=== PATIENT | female | born 1935 | race Caucasian/White ===

== ENCOUNTER → 2016-08-05 | Outpatient (CLI) | payer MEDICARE ==
[2015-05-04 18:55] VITALS: BP 178/62
[~2016-08-05] MED LIST: ACET500T68 PO; AMIT100T PO; ATOR20TA58 PO; CETI10TA22 PO; CLOP75TA27 PO; ESCI10TA PO; FENO48TA2 PO; FURO80TA72 PO; INSU100V13 SQ; LISI40TA PO; OMEP20CA5 PO; VIT1TABL2 PO; VIT1TABL71 PO
--- NOTE | 2016-08-05 17:41 | RAD ---
Left leg venous Doppler study: Clinical indications: Left leg swelling and pain. Findings: Duplex sonography (including edgar scale evaluation and color flow and waveform spectral analysis) of the proximal aspect of the greater saphenous vein and the proximal aspect of the profunda femoral vein and the entire length of the common femoral and superficial femoral and popliteal veins and the tibioperoneal trunk and the proximal aspect of the posterior tibial and peroneal veins of the left leg was performed. Normal compressibility, augmentation of color Doppler flow after calf compression, and respiratory variation of Doppler flow is seen. Thus, there are no sonographic findings of deep venous thrombosis within these veins. Impression: There are no sonographic findings of deep venous thrombosis within the veins discussed above of the left lower extremity. Right leg venous Doppler study: Clinical indications: Right leg swelling and pain. Findings: Duplex sonography (including edgar scale evaluation and color flow and waveform spectral analysis) of the proximal aspect of the greater saphenous vein and proximal aspect of the profunda femoral vein and the entire length of the common femoral and superficial femoral and popliteal veins and the tibioperoneal trunk and the proximal aspect of the posterior tibial and peroneal veins of the right leg was performed. Normal compressibility, augmentation of color Doppler flow after calf compression, and respiratory variation of Doppler flow is seen. Thus, there are no sonographic findings of deep venous thrombosis within these veins. Impression: There are no sonographic findings of deep venous thrombosis within the veins discussed above of the right lower extremity.
== END | disposition home or self-care (01) ==
LOC: US 15:25
PROVIDERS: ATTEND Internal Medicine
DX: M79.89 Other specified soft tissue disorders (principal); M79.605 Pain in left leg; M79.604 Pain in right leg
CPT/HCPCS: 93970

== ENCOUNTER 2017-02-03 07:16 | Emergency (ER) | payer MEDICARE ==
[~2017-02-03 07:16] MED LIST changes: -CLOP75TA27 PO; +CLOP75TA57 PO; -ESCI10TA PO; +ESCITALOPRAM OX10 MG PO
--- NOTE | 2017-02-03 07:21 | PHYS DOC ---
Past History Past Medical History: Diabetes, GERD, High Cholesterol, Renal Failure Past Surgical History: No Surgical History Alcohol Use: Rarely Drug Use: None Adult General Chief Complaint Chief Complaint: chest pain HPI HPI Patient is a 81 year old female who presents with chest pain that radiates into her back and her neck. She states it isn't the base of her neck and started early this morning she felt nauseated and vomited once. She states she's was be going to dialysis this morning. She denies any previous heart conditions. She does have a history of hypertension and was recently started on antibiotics for sore throat. She states she has mild shortness of breath but denies any fevers or chills or abdominal pain. She states the pain is a sharp stabbing pain it's constant and made slightly worse when she takes a big deep breath. She states the pain is located across her anterior chest and radiates into her back and neck. She states she's never had pain or discomfort like this before and recently it 8 out of 10. She does dialysis on Wednesday, and her multimedia developer is Dr. Garcia. She states she had a treadmill stress test about a year ago at [place], [place] by Dr. Cantu. Review of Systems Review of Systems Constitutional: Denies fever or chills [] Eyes: Denies change in visual acuity, redness, or eye pain [] HENT: Denies nasal congestion or sore throat [] Respiratory: Denies cough or shortness of breath [] Cardiovascular: No additional information not addressed in HPI [] GI: Denies abdominal pain, nausea, vomiting, bloody stools or diarrhea [] : Denies dysuria or hematuria [] Musculoskeletal: Denies back pain or joint pain [] Integument: Denies rash or skin lesions [] Neurologic: Denies headache, focal weakness or sensory changes [] Endocrine: Denies polyuria or polydipsia [] Allergies Allergies Allergies Coded Allergies Type Severity Reaction Last Updated Verified No Known Drug Allergies 03/16/14 No Physical Exam Physical Exam Constitutional: Well developed, well nourished, no acute distress, non-toxic appearance. [] HENT: Normocephalic, atraumatic, bilateral external ears normal, oropharynx moist, no oral exudates, nose normal. [] Eyes: PERRLA, EOMI, conjunctiva normal, no discharge. [] Neck: Normal range of motion, no tenderness, supple, no stridor. [] Cardiovascular:Heart rate regular rhythm, no murmur [] Lungs & Thorax: Bilateral breath sounds clear to auscultation [] Abdomen: Bowel sounds normal, soft, no tenderness, no masses, no pulsatile masses. [] Skin: Warm, dry, no erythema, no rash. [] Back: No tenderness, no CVA tenderness. [] Extremities: No tenderness, no cyanosis, no clubbing, ROM intact, no edema. [] Neurologic: Alert and oriented X 3, normal motor function, normal sensory function, no focal deficits noted. [] Psychologic: Affect normal, judgement normal, mood normal. [] EKG EKG EKG shows sinus rhythm with a rate of [address] elevations, T-wave flattening noticed in V5 V6, left axis deviation noted, QTC 422 ms, as interpreted by me. Radiology/Procedures Radiology/[place] [address] IMAGING REPORT Signed PATIENT: WILLIAM BUSTOS ACCOUNT: [id number] : 1935 LOCATION: ER AGE: 81 SEX: F EXAM STATUS: REG ER ORD. PHYSICIAN: DANIELLE MARTINO MD REASON: aortic dissection protocol PROCEDURE: CT ANGIO CHEST ABD PELVIS Indication chest pain radiating to the back. Dissection protocol. CTA targeted to the chest, abdomen and pelvis was performed. No noncontrast images were obtained. 90 cc of Omnipaque 300 was administered intravenously. MIP images were generated and reviewed. Volume rendered images were also generated and reviewed. No prior CT imaging of the chest is available. Best no noncontrast images were obtained no assessment can be made regarding potential intramural hematoma. The thoracic aorta, however, appears essentially unremarkable. There is some atherosclerotic plaquing. There is no evidence of aneurysm. No dissection is seen. The abdominal aorta appears unremarkable. The major vessels off the abdominal aorta appear unremarkable. The common iliac arteries appear normal. There is some coronary artery calcification. There is mild mediastinal adenopathy. Definite pathologic mediastinal or hilar adenopathy is not seen. Similarly there is some mild bilateral axillary adenopathy, likely incidental. There is a minute right pleural effusion. An acute parenchymal infiltrate in either lung is not seen. There is no dominant soft tissue mass. The liver and spleen appear unremarkable. No mass or hydronephrosis is seen associated with either kidney and the adrenal glands appear normal. No pancreatic abnormality is seen. No acute finding is seen in the abdomen or pelvis. There is a ventral abdominal wall hernia containing bowel appearing uncomplicated. IMPRESSION: No acute finding seen in the chest, abdomen or pelvis. No evidence of dissection. (Noncontrast images were not obtained and a full assessment for potential intramural hematoma, as result, is not possible). Minute right pleural effusion. Small ventral abdominal wall hernia. Mild mediastinal adenopathy, likely incidental PQRS Compliance Statement: One or more of the following individualized dose reduction techniques were utilized for this examination: 1. Automated exposure control 2. Adjustment of the mA and/or kV according to patient size 3. Use of iterative reconstruction technique DICTATED AND SIGNED BY: ADRIANA STERN MD DATE: 02/03/17 0948 CC: DANIELLE MARTINO MD; JANELLE GLEASON DO ~ Impressions: Chest pain Course & Med Decision Making Course & Med Decision Making Pertinent Labs and Imaging studies reviewed. (See chart for details) CT angios negative for any acute process. She received 2 nitros and her pain improved slightly and it wasn't until after she received fentanyl that she had substantial improvement in pain. EKG has some T-wave flattening in the lateral leads, initial labs show any acute abnormalities. Patient will need dialysis today. Patient will need admission in addition to repeat labs. I spoke with Dr. Ragland, who is agreeable to admit the patient to [facility] and once cardiology and nephrology consult. Patient's agreeable to plan she is in stable condition at this time being transferred to [facility]. I spoke with Dr. Key with nephrology in addition to September with cardiology. I've informed both him of the patient's vital signs, physical exam, labs and radiographic findings. They're both expecting the patient to arrive at [facility] shortly. Dragon Disclaimer Dragon Disclaimer This chart was dictated in whole or in part using Voice Recognition software in a busy, high-work load, and often noisy Emergency Department environment. It may contain unintended and wholly unrecognized errors or omissions. Departure Departure: Impression: Primary Impression: Chest pain Disposition: 05 XFER OTHER Condition: IMPROVED Referrals: JANELLE GLEASON DO (PCP) Problem Qualifiers Primary Impression: Chest pain Chest pain type: unspecified Qualified Codes: R07.9 - Chest pain, unspecified DANIELLE MARTINO MD Feb 03, 2017 07:21
[2017-02-03] MEDS: NITROGLYCERIN SUBLINGUAL 0.4 MG BOTTLE OF 25. SL PRN ×2 (07:54→08:00)
[2017-02-03] MEDS ORDERED: IOHEXOL 300 MG/ML 75 ML VIAL. IV ONE (08:15)
--- NOTE | 2017-02-03 08:17 | RAD ---
Portable chest, 02/03/2017: History: Chest pain Comparison is made to a study from 06/02/2016. The heart is mildly enlarged. There is calcific plaquing of the aorta. The pulmonary vascularity is within normal limits. The basilar pulmonary markings are mildly prominent but unchanged. This is probably due to mild scarring. There is unchanged blunting of the lateral costophrenic angle which may be due to scarring or tiny pleural effusions. No new abnormality is detected. A vascular stent is projected over the left axillary region. IMPRESSION: 1. Mild cardiomegaly and aortic atherosclerosis. 2. Mild prominent basilar pulmonary markings, likely due to fibrosis. 3. No significant change since 06/02/2016.
[2017-02-03 08:26] LABS: BASO % 0 % (0-3); EOS % 0 % (0-3); LYMPH # 0.4 x10^3/uL (1.0-4.8); LYMPH % 3 % (24-48); MEAN CORPUSCULAR HEMOGLOBIN 33 pg (25-35); MEAN CORPUSCULAR HGB CONC 34 g/dL (31-37); MEAN CORPUSCULAR VOLUME 97 fL (79-100); MONO # 0.6 x10^3/uL (0.0-1.1); MONO % 5 % (0-9); NEUT # 10.2 x10^3uL (1.8-7.7); NEUT % 91 % (31-73); PLATELET COUNT 176 x10^3/uL (140-400); RED BLOOD COUNT 3.61 x10^6/uL (3.50-5.40); RED CELL DISTRIBUTION WIDTH 13.6 % (11.5-14.5); WHITE BLOOD COUNT 11.1 x10^3/uL (4.0-11.0)
[2017-02-03] MEDS ORDERED: IOHEXOL 300 MG/ML 50 ML VIAL. IV ONE (08:45)
[2017-02-03 09:06] LABS: ALBUMIN 3.6 g/dL (3.4-5.0); CALCIUM 9.4 mg/dL (8.5-10.1); CREATININE 5.8 mg/dL (0.6-1.0); DIRECT BILIRUBIN 0.3 mg/dL (0.0-0.2); MAGNESIUM 1.7 mg/dL (1.8-2.4); POTASSIUM 4.1 mmol/L (3.5-5.1); TOTAL BILIRUBIN 0.8 mg/dL (0.2-1.0); TOTAL PROTEIN 6.8 g/dL (6.4-8.2)
--- NOTE | 2017-02-03 09:42 | RAD ---
Indication chest pain radiating to the back. Dissection protocol. CTA targeted to the chest, abdomen and pelvis was performed. No noncontrast images were obtained. 90 cc of Omnipaque 300 was administered intravenously. MIP images were generated and reviewed. Volume rendered images were also generated and reviewed. No prior CT imaging of the chest is available. Best no noncontrast images were obtained no assessment can be made regarding potential intramural hematoma. The thoracic aorta, however, appears essentially unremarkable. There is some atherosclerotic plaquing. There is no evidence of aneurysm. No dissection is seen. The abdominal aorta appears unremarkable. The major vessels off the abdominal aorta appear unremarkable. The common iliac arteries appear normal. There is some coronary artery calcification. There is mild mediastinal adenopathy. Definite pathologic mediastinal or hilar adenopathy is not seen. Similarly there is some mild bilateral axillary adenopathy, likely incidental. There is a minute right pleural effusion. An acute parenchymal infiltrate in either lung is not seen. There is no dominant soft tissue mass. The liver and spleen appear unremarkable. No mass or hydronephrosis is seen associated with either kidney and the adrenal glands appear normal. No pancreatic abnormality is seen. No acute finding is seen in the abdomen or pelvis. There is a ventral abdominal wall hernia containing bowel appearing uncomplicated. IMPRESSION: No acute finding seen in the chest, abdomen or pelvis. No evidence of dissection. (Noncontrast images were not obtained and a full assessment for potential intramural hematoma, as result, is not possible). Minute right pleural effusion. Small ventral abdominal wall hernia. Mild mediastinal adenopathy, likely incidental PQRS Compliance Statement: One or more of the following individualized dose reduction techniques were utilized for this examination: 1. Automated exposure control 2. Adjustment of the mA and/or kV according to patient size 3. Use of iterative reconstruction technique
[2017-02-03 11:11] VITALS: BP 163/60
[2017-02-03 11:35] LABS: CREATINE KINASE 41 U/L (26-192)
--- NOTE | 2017-02-03 19:09 | EKG ---
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
== END 2017-02-03 11:44 | disposition short-term general hospital (02) ==
LOC: ER 07:16
DX: R07.9 Chest pain, unspecified (principal); R11.2 Nausea with vomiting, unspecified; E78.00 Pure hypercholesterolemia, unspecified; K21.9 Gastro-esophageal reflux disease without esophagitis; I12.0 Hypertensive chronic kidney disease with stage 5 chronic kidney disease or end stage renal disease; N18.6 End stage renal disease; Z99.2 Dependence on renal dialysis
CPT/HCPCS: 36415; 71010; 71275; 74174; 80048; 80076; 82553; 83690; 83735; 83880; 84443; 84484; 85025; 85610; 85730; 93005; 96374; 99285; J3010; Q9967

== ENCOUNTER 2017-02-15 18:55 | Emergency (ER) | payer MEDICARE ==
[~2017-02-15] VITALS: Ht 157.5 cm; Wt 72.5 kg
--- NOTE | 2017-02-15 20:50 | ED.ADGEN ---
Past History Past Medical History: Diabetes, GERD, High Cholesterol, Hypertension, Renal Failure Past Surgical History: Cholecystectomy, Other Alcohol Use: Rarely Drug Use: None Adult General Chief Complaint Chief Complaint " I having shortness of breath and chest pain..." HPI HPI Patient is a 81 year old female who presents with above hx and complaints. Pt complaints of central chest pain she described as severe. Pain in center of her chest. Pt. has persistent while coming to hospital . Pt. also complaints of shortness of breath. Pt. did complete here hemodialysis today with no problems. End-stage renal disease and I'm been on hemodialysis for approximately 15 years. Patient does have a history of borderline diabetes and hypertension. Patient follows with Dr. Mosher locally. Follows with Dr. Garcia for renal follows with Dr. Payton for cardiology. No recent travel. No specific ill contacts. No history of trauma. Patient has been compliant for meds. Does take Plavix. Patient presents with a sinus rhythm with low voltage per monitor. Review of Systems Review of Systems Constitutional: Denies fever or chills [] Eyes: Denies change in visual acuity, redness, or eye pain [] HENT: Denies nasal congestion or sore throat [] Respiratory: Complains of shortness of breath [] Cardiovascular: No additional information not addressed in HPI [] GI: Denies abdominal pain, nausea, vomiting, bloody stools or diarrhea [] : Denies dysuria or hematuria [] Musculoskeletal: Denies back pain or joint pain [] Integument: Denies rash or skin lesions [] Neurologic: Denies headache, focal weakness or sensory changes [] Endocrine: Denies polyuria or polydipsia [] Family History Family History Noncontributory Current Medications Current Medications Current Medications Medications (Trade) Dose Ordered Sig/[facility] Start Time Stop Time Status Last Admin Dose Admin Aspirin (Children'S Aspirin) 324 mg 1X ONCE 02/15/17 21:00 02/15/17 21:01 DC 02/15/17 21:23 324 MG Levofloxacin (Levaquin) 500 mg 1X ONCE 02/15/17 23:30 02/15/17 23:31 DC Morphine Sulfate (Morphine 2mg Syringe) 2 mg PRN Q15MIN PRN 02/15/17 21:00 02/16/17 20:59 02/15/17 21:22 2 MG Nitroglycerin (Nitro-Bid Oint) 0.5 inch 1X ONCE 02/16/17 00:30 02/16/17 00:31 UNV Allergies Allergies Allergies Coded Allergies Type Severity Reaction Last Updated Verified No Known Drug Allergies 03/16/14 No Physical Exam Physical Exam Constitutional: in moderately acute distress, non-toxic appearance. [] HENT: Normocephalic, atraumatic, bilateral external ears normal, oropharynx moist, no oral exudates, nose normal. [] Eyes: PERRLA, EOMI, conjunctiva normal, no discharge. [] Neck: Normal range of motion, no tenderness, supple, no stridor. [] Cardiovascular:Heart rate regular rhythm, no murmur [ PMI to Lt. Lungs & Thorax: Bilateral breath sounds clear to auscultation [] Abdomen: Bowel sounds normal, soft, no tenderness, no masses, no pulsatile masses. Scar. Obese. Skin: Warm, dry, no erythema, no rash. [Poor turgor Back: No tenderness, no CVA tenderness. [] Extremities: No tenderness, no cyanosis, no clubbing, ROM intact, ankle. edema. [] Good Thrill in shunt Neurologic: Alert and oriented X 3, normal motor function, normal sensory function, no gross focal deficits noted. [] Psychologic: Affect anxious, judgement normal, mood normal. [] Current Patient Data Lab Results Laboratory Tests Test 02/15/17 21:40 02/15/17 22:15 White Blood Count 9.5 x10^3/uL (4.0-11.0) Red Blood Count 3.19 x10^6/uL (3.50-5.40) L Hemoglobin 10.6 g/dL (12.0-15.5) L Hematocrit 30.5 % (36.0-47.0) L Mean Corpuscular Volume 96 fL (79-100) Mean Corpuscular Hemoglobin 33 pg (25-35) Mean Corpuscular Hemoglobin Concent 35 g/dL (31-37) Red Cell Distribution Width 13.7 % (11.5-14.5) Platelet Count 305 x10^3/uL (140-400) Neutrophils (%) (Auto) 82 % (31-73) H Lymphocytes (%) (Auto) 11 % (24-48) L Monocytes (%) (Auto) 7 % (0-9) Eosinophils (%) (Auto) 0 % (0-3) Basophils (%) (Auto) 0 % (0-3) Neutrophils # (Auto) 7.7 x10^3uL (1.8-7.7) Lymphocytes # (Auto) 1.1 x10^3/uL (1.0-4.8) Monocytes # (Auto) 0.6 x10^3/uL (0.0-1.1) Eosinophils # (Auto) 0.0 x10^3/uL (0.0-0.7) Basophils # (Auto) 0.0 x10^3/uL (0.0-0.2) Prothrombin Time 12.4 SEC (9.4-11.4) H Prothrombin Time INR 1.2 (0.9-1.1) H PTT 30 SEC (23-33) D-Dimer (Mikala) 2.04 mg/L (0.00-0.50) H Sodium Level 141 mmol/L (136-145) Potassium Level 3.9 mmol/L (3.5-5.1) Chloride Level 101 mmol/L (98-107) Carbon Dioxide Level 28 mmol/L (21-32) Anion Gap 12 (6-14) Blood Urea Nitrogen 37 mg/dL (7-20) H Creatinine 4.3 mg/dL (0.6-1.0) H Estimated GFR (Cockcroft-Gault) 9.9 BUN/Creatinine Ratio 9 (6-20) Glucose Level 162 mg/dL (70-99) H Calcium Level 9.4 mg/dL (8.5-10.1) Magnesium Level 1.8 mg/dL (1.8-2.4) Total Bilirubin 0.6 mg/dL (0.2-1.0) Aspartate Amino Transferase (AST) 42 U/L (15-37) H Alanine Aminotransferase (ALT) 49 U/L (14-59) Alkaline Phosphatase 162 U/L (46-116) H Creatine Kinase 18 U/L (26-192) L Creatine Kinase MB (Mass) < 0.5 ng/mL (0.0-3.6) Creatine Kinase MB Relative Index 2.8 % (0-4) Troponin I Quantitative 0.018 ng/mL (0-0.055) JK-Uij-C-Type Natriuretic Peptide 6322 pg/mL (0-449) H Total Protein 6.5 g/dL (6.4-8.2) Albumin 3.1 g/dL (3.4-5.0) L Albumin/Globulin Ratio 0.9 (1.0-1.7) L Lipase 96 U/L (73-393) Urine Collection Type Unknown Urine Color Yellow Urine Clarity Hazy Urine pH 8.5 Urine Specific [place] 1.020 Urine Protein >100 mg/dl (NEG-TRACE) Urine Glucose (UA) 100 mg/dL (NEG) Urine Ketones (Stick) Neg mg/dL (NEG) Urine Blood Small (NEG) Urine Nitrite Neg (NEG) Urine Bilirubin Neg (NEG) Urine Urobilinogen Dipstick 0.2 mg/dL (0.2 mg/dL) Urine Leukocyte Esterase Neg (NEG) Urine RBC 3-5 /HPF (0-2) Urine WBC 11-20 /HPF (0-4) Urine Squamous Epithelial Cells Many /LPF Urine Bacteria Few /HPF (0-FEW) Urine Opiates Screen Neg (NEG) Urine Methadone Screen Neg (NEG) Urine Barbiturates Neg (NEG) Urine Phencyclidine Screen Neg (NEG) Urine Amphetamine/Methamphetamine Neg (NEG) Urine Benzodiazepines Screen Neg (NEG) Urine Cocaine Screen Neg (NEG) Urine Cannabinoids Screen Neg (NEG) Urine Ethyl Alcohol Neg (NEG) EKG EKG My interpretation of EKG shows a sinus rhythm at 67 beats per minute. There is leftward axis. No findings acute STEMI of contralateral changes. Does appear to have low voltage[] Radiology/Procedures Radiology/Procedures My interpretation of chest x-ray shows blunting of both close to phrenic angles. Cardiomegaly. Increased cephalization consistent with CHF. Does have degenerative joint changes. Her right arm Chelan-Enoch graft is visible[] Course & Med Decision Making Course & Med Decision Making Pertinent Labs and Imaging studies reviewed. (See chart for details) Discussed presentation, testing and treatment plan with - advised patient will need to go to [facility] for further evaluation and treatment.. Discussed presentation testing with , Hospitalist will accept patient at [facility] for cardiology and nephrology consults. 1201 Hrs. Currently patient advises chest pain has resolved, but is still mildly dyspneic [] Final Impression Final Impression 1. Chest Pain 2. CHF 3. ESRD- HD on MWF 4. Anemia 5. Elevated BUN/creatinine 6. Diabetes 7. Urinary tract infection Problems: Dragon Disclaimer Dragon Disclaimer This electronic medical record was generated, in whole or in part, using a voice recognition dictation system. LINUS CRUZ MD Feb 15, 2017 20:50
[2017-02-15] MEDS ORDERED: MORPHINE SULFATE 2 MG/ML DISP.SYRIN. IV/SQ PRN (21:00)
[2017-02-15] MEDS ORDERED: ASPIRIN 81 MG TAB.CHEW PO ONE (21:00)
[2017-02-15 22:15] LABS: BASO % 0 % (0-3); EOS % 0 % (0-3); HEMATOCRIT 30.5 % (36.0-47.0); HEMOGLOBIN 10.6 g/dL (12.0-15.5); LYMPH # 1.1 x10^3/uL (1.0-4.8); LYMPH % 11 % (24-48); MEAN CORPUSCULAR HEMOGLOBIN 33 pg (25-35); MEAN CORPUSCULAR HGB CONC 35 g/dL (31-37); MEAN CORPUSCULAR VOLUME 96 fL (79-100); MONO # 0.6 x10^3/uL (0.0-1.1); MONO % 7 % (0-9); NEUT # 7.7 x10^3uL (1.8-7.7); NEUT % 82 % (31-73); PLATELET COUNT 305 x10^3/uL (140-400); RED BLOOD COUNT 3.19 x10^6/uL (3.50-5.40); RED CELL DISTRIBUTION WIDTH 13.7 % (11.5-14.5); WHITE BLOOD COUNT 9.5 x10^3/uL (4.0-11.0)
[2017-02-15 22:32] LABS: ALBUMIN 3.1 g/dL (3.4-5.0); ALBUMIN/GLOBULIN RATIO 0.9 (1.0-1.7); ALK PHOS 162 U/L (46-116); ALT (SGPT) 49 U/L (14-59); ANION GAP 12 (6-14); AST (SGOT) 42 U/L (15-37); BLOOD UREA NITROGEN 37 mg/dL (7-20); BUN/CREATININE RATIO 9 (6-20); CALCIUM 9.4 mg/dL (8.5-10.1); CARBON DIOXIDE 28 mmol/L (21-32); CHLORIDE 101 mmol/L (98-107); CREATINE KINASE 18 U/L (26-192); CREATININE 4.3 mg/dL (0.6-1.0); GFR 9.9; GLUCOSE 162 mg/dL (70-99); LIPASE 96 U/L (73-393); MAGNESIUM 1.8 mg/dL (1.8-2.4); POTASSIUM 3.9 mmol/L (3.5-5.1); SODIUM 141 mmol/L (136-145); TOTAL BILIRUBIN 0.6 mg/dL (0.2-1.0); TOTAL PROTEIN 6.5 g/dL (6.4-8.2)
[2017-02-15 22:49] LABS: BILIRUBIN,URINE NEG (NEG); CLARITY,URINE HAZY; COLOR,URINE YELLOW; GLUCOSE,URINE 100 mg/dL (NEG); UROBILINOGEN,URINE 0.2 mg/dL (0.2 mg/dL)
[2017-02-15 22:50] LABS: AMPHETAMINE/METHAMPHETAMINE NEG (NEG); BACTERIA,URINE FEW /HPF (0-FEW); BARBITURATES NEG (NEG); BENZODIAZEPINES NEG (NEG); CANNABINOIDS NEG (NEG); COCAINE NEG (NEG); METHADONE NEG (NEG); NITRITE,URINE NEG (NEG); OPIATES NEG (NEG); PHENCYCLIDINE NEG (NEG); SQUAMOUS EPITHELIAL CELL,UR MANY /LPF
[2017-02-15] MEDS ORDERED: levoFLOXacin 500 MG TABLET PO ONE (23:30)
[2017-02-16] MEDS ORDERED: NITROGLYCERIN OINT 1 GM PACKET. TP ONE (00:30)
[2017-02-16 02:29] VITALS: BP 138/56
--- NOTE | 2017-02-16 06:07 | EKG ---
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
--- NOTE | 2017-02-16 09:01 | RAD ---
Chest radiograph 02/15/2017 10:51 PM Indication: Chest pain, dyspnea Comparison: Chest radiograph 02/03/2017 Technique: Single portable upright frontal view of the chest is provided. Findings: There is stable enlarged appearance of the cardiomediastinal silhouette. Atherosclerotic calcification of the thoracic aorta is present. Increase in bilateral small pleural effusions with adjacent atelectasis and/or infiltrates. There is subsegmental atelectasis in the right midlung. No pulmonary vascular congestion. No pneumothorax. Left subclavian stent is identified. Right arm vascular stent is noted. Mild osteoarthrosis of the glenohumeral joints is present. Impression: Stable enlarged cardiomediastinal silhouette with increase in small bilateral pleural effusions with adjacent atelectasis and/or infiltrates. Short-term follow-up radiograph is recommended to ensure resolution.
== END 2017-02-16 02:41 | disposition short-term general hospital (02) ==
LOC: ER 18:55
DX: I13.2 Hypertensive heart and chronic kidney disease with heart failure and with stage 5 chronic kidney disease, or end stage renal disease (principal); I50.9 Heart failure, unspecified; N18.6 End stage renal disease; E11.22 Type 2 diabetes mellitus with diabetic chronic kidney disease; D64.9 Anemia, unspecified; N39.0 Urinary tract infection, site not specified; R79.89 Other specified abnormal findings of blood chemistry; K21.9 Gastro-esophageal reflux disease without esophagitis; E78.00 Pure hypercholesterolemia, unspecified; Z99.2 Dependence on renal dialysis
CPT/HCPCS: 36415; 71010; 80053; 80307; 81001; 82553; 83690; 83735; 83880; 84443; 84484; 85025; 85379; 85610; 85730; 93005; 96372; 99285; J2270; 87086; G0479

== ENCOUNTER 2017-06-10 20:05 | Inpatient (IN) | payer MEDICARE ==
[~2017-06-10] VITALS: Ht 158.1 cm; Wt 66.2 kg
[2017-06-10 21:26] LABS: BASO % 0 % (0-3); EOS # 0.2 x10^3/uL (0.0-0.7); EOS % 3 % (0-3); HEMATOCRIT 33.2 % (36.0-47.0); HEMOGLOBIN 11.2 g/dL (12.0-15.5); LYMPH # 1.6 x10^3/uL (1.0-4.8); LYMPH % 27 % (24-48); MEAN CORPUSCULAR HEMOGLOBIN 34 pg (25-35); MEAN CORPUSCULAR HGB CONC 34 g/dL (31-37); MEAN CORPUSCULAR VOLUME 101 fL (79-100); MONO # 0.5 x10^3/uL (0.0-1.1); MONO % 8 % (0-9); NEUT # 3.8 x10^3uL (1.8-7.7); NEUT % 62 % (31-73); PLATELET COUNT 184 x10^3/uL (140-400); RED BLOOD COUNT 3.28 x10^6/uL (3.50-5.40); RED CELL DISTRIBUTION WIDTH 14.3 % (11.5-14.5); WHITE BLOOD COUNT 6.1 x10^3/uL (4.0-11.0)
[2017-06-10 21:49] LABS: ALBUMIN 3.5 g/dL (3.4-5.0); ALBUMIN/GLOBULIN RATIO 1.2 (1.0-1.7); CALCIUM 9.6 mg/dL (8.5-10.1); CREATININE 5.6 mg/dL (0.6-1.0); GFR 7.3; POTASSIUM 3.8 mmol/L (3.5-5.1); TOTAL BILIRUBIN 0.4 mg/dL (0.2-1.0); TOTAL PROTEIN 6.5 g/dL (6.4-8.2)
[2017-06-10] MEDS ORDERED: ASPIRIN 81 MG TAB.CHEW PO ONE (22:15)
--- NOTE | 2017-06-10 22:20 | PHYS DOC ---
Past History Past Medical History: Diabetes, GERD, High Cholesterol, Hypertension, Renal Failure Past Surgical History: Cholecystectomy, Other Alcohol Use: Rarely Drug Use: None Adult General Chief Complaint Chief Complaint: CHEST PAIN HPI HPI Patient is a 81 year old female who presents with complaint of chest pain. Patient states that her symptoms started within an hour prior to arrival. Patient states she is having pressure in her chest with associated diaphoresis. Patient has history of coronary artery disease, end-stage renal disease, and has had problems with anxiety. The patient was recently started on BuSpar for treatment of anxiety. Patient states that despite taking this medication she has not noted any improvement in her anxiety. The patient underwent cardiac catheterization in January 2017 where she had a stent placed at that time due to coronary stenosis. Patient denies any fevers or productive cough. The patient states that her pressure pain has improved at this time. Patient has not taken any medications for her symptoms since onset. Review of Systems Review of Systems Constitutional: Denies fever or chills [] Eyes: Denies change in visual acuity, redness, or eye pain [] HENT: Denies nasal congestion or sore throat [] Respiratory: Denies cough or shortness of breath [] Cardiovascular: Chest pain[] GI: Denies abdominal pain, nausea, vomiting, bloody stools or diarrhea [] : Denies dysuria or hematuria [] Musculoskeletal: Denies back pain or joint pain [] Integument: Denies rash or skin lesions [] Neurologic: Denies headache, focal weakness or sensory changes [] All other systems were reviewed and found to be within normal limits, except as documented in this note. Allergies Allergies Allergies Coded Allergies Type Severity Reaction Last Updated Verified No Known Drug Allergies 03/16/14 No Physical Exam Physical Exam Constitutional: Alert, afebrile, appears mildly anxious, vital signs stable.[] HENT: Normocephalic, atraumatic, bilateral external ears normal, oropharynx moist, no oral exudates, nose normal. [] Eyes: PERRLA, EOMI, conjunctiva normal, no discharge. [] Neck: Normal range of motion, no tenderness, supple, no stridor. [] Cardiovascular:Heart rate regular rhythm, no murmur [] Lungs & Thorax: Bilateral breath sounds clear to auscultation [] Abdomen: Bowel sounds normal, soft, no tenderness, no masses, no pulsatile masses. [] Skin: Warm, dry, no erythema, no rash. [] Back: No tenderness, no CVA tenderness. [] Extremities: No tenderness, no cyanosis, no clubbing, ROM intact, no edema. [] Neurologic: Alert and oriented X 3, normal motor function, normal sensory function, no focal deficits noted. [] Current Patient Data Vital Signs Vital Signs Date Time Temp Pulse Resp B/P (MAP) Pulse Ox O2 Delivery O2 Flow Rate FiO2 06/10/17 20:05 98.1 90 16 97 Room Air Lab Results Laboratory Tests Test 06/10/17 21:12 White Blood Count 6.1 x10^3/uL (4.0-11.0) Red Blood Count 3.28 x10^6/uL (3.50-5.40) L Hemoglobin 11.2 g/dL (12.0-15.5) L Hematocrit 33.2 % (36.0-47.0) L Mean Corpuscular Volume 101 fL (79-100) H Mean Corpuscular Hemoglobin 34 pg (25-35) Mean Corpuscular Hemoglobin Concent 34 g/dL (31-37) Red Cell Distribution Width 14.3 % (11.5-14.5) Platelet Count 184 x10^3/uL (140-400) Neutrophils (%) (Auto) 62 % (31-73) Lymphocytes (%) (Auto) 27 % (24-48) Monocytes (%) (Auto) 8 % (0-9) Eosinophils (%) (Auto) 3 % (0-3) Basophils (%) (Auto) 0 % (0-3) Neutrophils # (Auto) 3.8 x10^3uL (1.8-7.7) Lymphocytes # (Auto) 1.6 x10^3/uL (1.0-4.8) Monocytes # (Auto) 0.5 x10^3/uL (0.0-1.1) Eosinophils # (Auto) 0.2 x10^3/uL (0.0-0.7) Basophils # (Auto) 0.0 x10^3/uL (0.0-0.2) Sodium Level 136 mmol/L (136-145) Potassium Level 3.8 mmol/L (3.5-5.1) Chloride Level 97 mmol/L (98-107) L Carbon Dioxide Level 26 mmol/L (21-32) Anion Gap 13 (6-14) Blood Urea Nitrogen 51 mg/dL (7-20) H Creatinine 5.6 mg/dL (0.6-1.0) H Estimated GFR (Cockcroft-Gault) 7.3 BUN/Creatinine Ratio 9 (6-20) Glucose Level 207 mg/dL (70-99) H Calcium Level 9.6 mg/dL (8.5-10.1) Total Bilirubin 0.4 mg/dL (0.2-1.0) Aspartate Amino Transferase (AST) 25 U/L (15-37) Alanine Aminotransferase (ALT) 23 U/L (14-59) Alkaline Phosphatase 83 U/L (46-116) Creatine Kinase 217 U/L (26-192) H Creatine Kinase MB (Mass) 4.3 ng/mL (0.0-3.6) H Creatine Kinase MB Relative Index 2.0 % (0-4) Troponin I Quantitative 0.064 ng/mL (0-0.055) H Total Protein 6.5 g/dL (6.4-8.2) Albumin 3.5 g/dL (3.4-5.0) Albumin/Globulin Ratio 1.2 (1.0-1.7) Lipase 207 U/L (73-393) EKG EKG Interpreted by me: Heart rate 83, sinus rhythm, prolonged IA interval, leftward axis, no acute ST/T-wave abnormalities present[] Radiology/Procedures Radiology/Procedures One view AP chest x-ray interpreted by me: Mild pulmonary vascular congestion, cardiomegaly, no infiltrate[] Course & Med Decision Making Course & Med Decision Making Pertinent Labs and Imaging studies reviewed. (See chart for details) HEART score is is 7 placing patient in high risk category for acute cardiac event. I spoke with Dr. Early of cardiology regarding the patient's case. He stated that the patient could be admitted at [facility] where they will follow with patient and rule out for myocardial infarction. I spoke with Dr. Ragland who accepted care patient in hospital. Dragon Disclaimer Dragon Disclaimer This electronic medical record was generated, in whole or in part, using a voice recognition dictation system. Departure Departure: Impression: Primary Impression: Chest pain Additional Impressions: Coronary artery disease End stage renal disease Type 2 diabetes mellitus Elevated troponin Disposition: ADMITTED INPATIENT Admitting Physician: Gena Ragland Condition: STABLE Referrals: JANELLE GLEASON DO (PCP) Problem Qualifiers Primary Impression: Chest pain Chest pain type: unspecified Qualified Codes: R07.9 - Chest pain, unspecified Additional Impressions: Coronary artery disease Coronary Disease-Associated Artery/Lesion type: [place] artery [place] vs. 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
[2017-06-10 23:51] VITALS: BP 185/80
[2017-06-11] MEDS ORDERED: ACETAMINOPHEN 500 MG TABLET PO SCH ×2 (00:45→21:00)
[2017-06-11] MEDS ORDERED: ACETAMINOPHEN 325 MG TABLET PO PRN (00:45)
[2017-06-11] MEDS ORDERED: diphenhydrAMINE HCL 25 MG CAPSULE PO SCH (00:45)
[2017-06-11] MEDS ORDERED: ONDANSETRON PF 4 MG/2 ML VIAL. IV PRN (00:45)
[2017-06-11 01:00] VITALS: BP 169/59
[2017-06-11 03:00] VITALS: BP 154/62
--- NOTE | 2017-06-11 05:37 | EKG ---
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
--- NOTE | 2017-06-11 07:55 | RAD ---
Single view chest 06/10/2017 Clinical indication: Chest pain. Comparison: Chest 02/15/2017. Findings: Cardiac and mediastinal silhouettes are unremarkable. There is stable mild interstitial opacities. No pleural effusion, pneumothorax or focal consolidation. Left subclavian/axillary vascular stent. Multiple surgical clips overlying the distal left upper extremity. Impression: 1. Mild stable interstitial opacities, may represent scarring or mild pulmonary edema. 2. No consolidating pneumonia or pleural effusion.
[2017-06-11 08:00] VITALS: BP 138/62
--- NOTE | 2017-06-11 09:25 | PDOC2 ---
MARIA ALEJANDRA SAL Maged DEPOSIT REFUND CLERK 06/11/17 0924: CONSULT Date of Admission DATE: 06/11/17 TIME: 09:11 Reason for Consult: chest pain Problem List Problems Medical Problems: (1) Chest pain Status: Acute (2) Coronary artery disease Status: Acute (3) Elevated troponin Status: Acute (4) End stage renal disease Status: Acute (5) Type 2 diabetes mellitus Status: Acute History of Present Illness Ms Park is an 81 year old female with a history of CAD, prior CA and PCI/ Stent last year, ESRD, hypertension, and diastolic heart failure. She presented to the ED at [facility] for evaluation of chest pain. She reports having symptoms of chest pressure across her upper chest and radiating to her back with associated episodes of diaphoresis. Symptoms were non exertional and occurred off and on yesterday. She initially thought she was just having anxiety as she had symptoms of "jitteriness" as well. She took her anti anxiety medication but reports there were no resolution of symptoms so she presented to the ED. She reports symptoms are similar to her prior anginal symptoms though less severe. She denies any episodes since her last cath until today. She is currently symptom free. She reports no issues with maintaining dry weight with dialysis though she does report it has been adjusted due to some weight gain. She denies edema, congestive symptoms, palpitations or lightheadedness. She denies syncope. She is due for dialysis today on a -- schedule. Past Medical History Echo 01/25/17 The left ventricular systolic function is normal and the ejection fraction is within normal range. EF 55% There is grossly normal LV segmental wall motion. Technically difficult study precludes accurate wall motion assessment. Calculated aortic valve area is 1.2 cm2 (likely underestimated) with maximum pressure gradient of 26 mmHg and mean pressure gradient of 15 mmHg. Doppler and color-flow analysis revealed mild aortic stenosis. Doppler and Color Flow revealed mild mitral regurgitation. Cardiac cath 02/18/17 Coronaries Left main. The left main was a moderate size vessel. It had no lesions. LAD. The LAD had a tortuous proximal section. There is a 75-80% proximal to mid lesion. More distally there was significant small vessel disease which was heavily calcified with lesions to 80-90%. Left circumflex. The left circumflex had a mid 25% lesion. Right coronary artery. The right coronary had a mid 20% lesion which was a long smooth lesion. Left ventriculogram. The left ventricle showed normal left ventricular systolic function with mild mitral regurgitation. Ejection fraction was greater than 55%. <Conclusion> Severe proximal LAD lesion of 75-80% stented to a 0% residual. Diffuse small vessel distal disease in the LAD with heavy calcification. Mild disease in the left circumflex and right coronary system. Mild mitral regurgitation. Intact LV systolic function. Cardiovascular: CAD, CA, prior stents CHF, HTN, Hyperlipidemia, Atrial fibrillation, Aortic stenosis Pulmonary: No pertinent hx CENTRAL NERVOUS SYSTEM: Other (No pertinent history) GI: GERD Heme/Onc: Anemia NOS Hepatobiliary: No pertinent hx Psych: Anxiety Musculoskeletal: Osteoarthritis Rheumatologic: No pertinent hx Infectious disease: Other (MRSA 2007) ENT: No pertinent hx Renal/: Chronic renal failure (ESRD on HD) Endocrine: Diabetes (2), Hypothyroidism, Hyperparathyroidism Dermatology: No pertinent hx Past Surgical History Cholecystectomy, Tonsillectomy, Other (Right arm dialysis AV fistula placement with eventual thrombectomy and revision; right basilic vein stent placement), cataract extraction Family History No Significant Social History non smoker, no ETOH, no illicit drugs Current Medications Current Medications Aspirin (Children'S Aspirin) 324 mg 1X ONCE PO Last administered on 06/10/17at 22:27; Start 06/10/17 at 22:15; Stop 06/10/17 at 22:17; Status DC Ondansetron HCl (Zofran) 4 mg PRN Q4HRS PRN IV NAUSEA/VOMITING; Start 06/11/17 at 00:45; Stop 06/12/17 at 00:44 Fentanyl Citrate (Fentanyl 2ml Vial) 50 mcg PRN Q2HR PRN IV PAIN; Start at 00:45; Stop 06/12/17 at 00:44 Acetaminophen (Tylenol) 650 mg PRN Q4HRS PRN PO FEVER; Start 06/11/17 at 00:45 ; Stop 06/12/17 at 00:44 Acetaminophen (Tylenol) 1,000 mg HS PO Last administered on 06/11/17at 00:55; Start 06/11/17 at 00:45 Diphenhydramine HCl (Benadryl) 50 mg HS PO Last administered on 06/11/17at 00:55 ; Start 06/11/17 at 00:45 Active Scripts Active Reported Viola-[facility] Rx Tablet (Vit B Cmplx 3/Fa/Vit C/Biotin) 1 Each Tablet 1 Each PO Folgard Tablet (Vit D3/Folic Acid/B2/B6/B12) 1 Each Tablet 1 Each PO Atorvastatin Calcium 20 Mg Tablet 1 Tab PO DAILY Escitalopram Oxalate 10 Mg Tablet 1 Tab PO DAILY Lasix (Furosemide) 80 Mg Tablet 1 Tab PO BID Acetaminophen 500 Mg Tablet 1 Tab PO BID Plavix (Clopidogrel Bisulfate) 75 Mg Tablet 1 Tab PO DAILY Fenofibrate (Fenofibrate Nanocrystallized) 48 Mg Tablet 48 Mg PO Zyrtec (Cetirizine Hcl) 10 Mg Tablet 1 Tab PO DAILY PRN Lisinopril 40 Mg Tablet 1 Tab PO DAILY Prilosec (Omeprazole) 20 Mg Capsule.dr 1 Cap PO DAILY Amitriptyline Hcl 100 Mg Tablet 1 Tab PO QHS Levemir (Insulin Detemir) 100 Unit/1 Ml Vial 12 Unit SQ QHS Allergies: Coded Allergies: No Known Drug Allergies (Unverified , 03/16/14) Review of System as per HPI or negative General: Alert, Oriented X3, Cooperative, No acute distress HEENT: Atraumatic, EOMI, Other (radiation of aortic murmur to bilateral carotids vs carotid bruits R>L) Lungs: Other (mildly decreased bases otherwise clear) Heart: Regular rate, Normal S1, Normal S2, Other (+ systolic murmur 2/6, no gallops, clicks or rubs) Abdomen: Normal bowel sounds, Soft Extremities: No cyanosis, Normal pulses, Other (trace edema) Neuro: Normal speech, Strength at 5/5 X4 ext Psych/Mental Status: Mental status NL, Mood NL VITALS Vital Signs Date Time Temp Pulse Resp B/P (MAP) Pulse Ox O2 Delivery O2 Flow Rate FiO2 06/11/17 03:00 68 20 154/62 (92) 99 Room Air 06/10/17 23:51 98.2 Labs Laboratory Tests Test 06/10/17 21:12 06/11/17 01:00 06/11/17 06:14 06/11/17 07:41 White Blood Count 6.1 x10^3/uL (4.0-11.0) Red Blood Count 3.28 x10^6/uL (3.50-5.40) Hemoglobin 11.2 g/dL (12.0-15.5) Hematocrit 33.2 % (36.0-47.0) Mean Corpuscular Volume 101 fL (79-100) Mean Corpuscular Hemoglobin 34 pg (25-35) Mean Corpuscular Hemoglobin Concent 34 g/dL (31-37) Red Cell Distribution Width 14.3 % (11.5-14.5) Platelet Count 184 x10^3/uL (140-400) Neutrophils (%) (Auto) 62 % (31-73) Lymphocytes (%) (Auto) 27 % (24-48) Monocytes (%) (Auto) 8 % (0-9) Eosinophils (%) (Auto) 3 % (0-3) Basophils (%) (Auto) 0 % (0-3) Neutrophils # (Auto) 3.8 x10^3uL (1.8-7.7) Lymphocytes # (Auto) 1.6 x10^3/uL (1.0-4.8) Monocytes # (Auto) 0.5 x10^3/uL (0.0-1.1) Eosinophils # (Auto) 0.2 x10^3/uL (0.0-0.7) Basophils # (Auto) 0.0 x10^3/uL (0.0-0.2) Sodium Level 136 mmol/L (136-145) Potassium Level 3.8 mmol/L (3.5-5.1) Chloride Level 97 mmol/L (98-107) Carbon Dioxide Level 26 mmol/L (21-32) Anion Gap 13 (6-14) Blood Urea Nitrogen 51 mg/dL (7-20) Creatinine 5.6 mg/dL (0.6-1.0) Estimated GFR (Cockcroft-Gault) 7.3 BUN/Creatinine Ratio 9 (6-20) Glucose Level 207 mg/dL (70-99) Calcium Level 9.6 mg/dL (8.5-10.1) Total Bilirubin 0.4 mg/dL (0.2-1.0) Aspartate Amino Transf (AST/SGOT) 25 U/L (15-37) Alanine Aminotransferase (ALT/SGPT) 23 U/L (14-59) Alkaline Phosphatase 83 U/L (46-116) Creatine Kinase 217 U/L (26-192) Creatine Kinase MB (Mass) 4.3 ng/mL (0.0-3.6) Creatine Kinase MB Relative Index 2.0 % (0-4) Troponin I Quantitative 0.064 ng/mL (0-0.055) 0.070 ng/mL (0-0.055) 0.070 ng/mL (0-0.055) Total Protein 6.5 g/dL (6.4-8.2) Albumin 3.5 g/dL (3.4-5.0) Albumin/Globulin Ratio 1.2 (1.0-1.7) Lipase 207 U/L (73-393) Glucose (Fingerstick) 130 mg/dL (70-99) Images CXR - Impression: 1. Mild stable interstitial opacities, may represent scarring or mild pulmonary edema. 2. No consolidating pneumonia or pleural effusion. EKG - sinus rhythm, left axis, non specific st/t abn Assessment/Plan 1. Chest pain - typical and atypical features. Minimal troponin elevation. No acute EKG changes 2. CAD s/p PCI/stent to LAD in January. 3. mild diastolic heart failure 4. hypertensive heart disease with mild aortic stenosis 5. ESRD/HD 6. diabetes mellitus Plan for transfer to [facility] to allow for dialysis and MPI. Resume home medications. Problems: TARIQ COLON MD 06/11/17 1423: CONSULT Allergies: Coded Allergies: No Known Drug Allergies (Unverified , 03/16/14) Assessment/Plan Patient seen and examined. Agree with DISPATCHER MOTOR VEHICLE's assessment and plan. Chest pain with mixed typical and atypical features. In lieu of her history of coronary artery disease, we will obtain Lexiscan nuclear stress test to rule out ischemia Continue hemodialysis per nephrology team Thank you for your consultation Problems: MARIA ALEJANDRA SAL APRN Jun 11, 2017 09:24 TARIQ COLON MD Jun 11, 2017 14:23
[2017-06-11 12:58] VITALS: BP 149/63
[2017-06-11] MEDS ORDERED: CETIRIZINE HCL 10 MG TABLET PO PRN (13:45)
[2017-06-11] MEDS ORDERED: LORazepam 0.5 MG TABLET ONE (13:56)
[2017-06-11] MEDS ORDERED: AMITRIPTYLINE HCL 100 MG TABLET PO SCH (21:00)
[2017-06-11] MEDS ORDERED: FUROSEMIDE 80 MG TABLET PO SCH (21:00)
[2017-06-11] MEDS ORDERED: INSULIN DETEMIR 300 UNITS/3 ML INSULN.PEN. SQ SCH (21:00)
--- NOTE | 2017-06-11 21:24 | SSS ---
ADMIT DATE: 06/11/2017 HISTORY OF PRESENT ILLNESS: The patient is an 81-year-old female patient with past medical history significant for coronary artery disease, prior myocardial infarction, PCI and stent deployment in 01/2017. She is also known to have end-stage renal disease, hypertension, diastolic heart failure. She came to the Emergency Room of [facility] for evaluation of chest pain. She endorses having symptoms of chest pressure across her upper chest radiating to her back and associated with episodes of diaphoresis, symptoms were not associated with exertion and they occurred on and off. She has severe anxiety, and she feels that these symptoms are just part of her anxiety, but that medication did not help. Her symptoms persisted and she presented to the Emergency Department. She has similar symptoms prior to her anginal symptom, but she denied any nausea or vomiting. Denied any radiation or diaphoresis. Denied any palpitation or lightheadedness. Denied any syncope. She is actually due for dialysis today as she has been on dialysis for the last 11 years on Wednesday, Wednesday, Wednesday. PAST MEDICAL HISTORY: Significant for coronary artery disease, status post TN, status post PCI with stent deployment, end-stage renal disease, hypertension, diastolic heart failure. She is known to have gastroesophageal reflux disease, anxiety, osteoarthritis, history of MRSA infection in 2007, type 2 diabetes, hypothyroidism, hyperparathyroidism. PAST SURGICAL HISTORY: Significant for cholecystectomy, tonsillectomy, right arm dialysis arteriovenous fistula placement with eventual thrombectomy revision, right basilic vein stent placement and cataract extraction, PCI with stent deployment. FAMILY HISTORY: Unremarkable. SOCIAL HISTORY: She lives on her own. She has a son and daughter to drive her to back and forth from dialysis unit. She does not smoke, drink alcohol, or use any recreational drugs. MEDICATIONS: She is currently on following medications: She is on Tylenol 500 mg twice a day, amitriptyline 100 mg at bedtime, atorvastatin 20 mg at bedtime, cetirizine 10 mg once a day, Plavix 75 mg once a day, Lexapro 10 mg once a day, fenofibrate 48 mg once a day, furosemide 80 mg twice a day, Levemir insulin 12 units at bedtime, lisinopril 40 mg tablet daily, omeprazole 20 mg once a day, vitamin B complex with vitamin once a day. REVIEW OF SYSTEMS: As per history of present illness. PHYSICAL EXAMINATION GENERAL: When I examined her, she was sitting on the edge of the bed comfortably in no apparent respiratory distress, no pallor. She is pale, but no jaundice, cyanosis, or thyromegaly. No jugular venous distension. No limb edema. VITAL SIGNS: His heart rate was 73, blood pressure 185/80, temperature was 98.2, respiratory rate was 28, and his oxygen saturation was 100% on room air. HEAD, EYES, EARS, NOSE, AND THROAT: Normocephalic, atraumatic. NECK: Supple. HEART: Showed normal first and second heart sounds with no gallop, rub, or murmur. CHEST: Clear to auscultation. No crepitation or rhonchi. ABDOMEN: Distended, soft, nontender. No guarding or rigidity. No organomegaly. All hernial orifices intact. Bowel sounds normal. NEUROLOGIC: She was awake, alert, responding appropriately. All cranial nerves intact. EXTREMITIES: She moves extremities without difficulty. She ambulates without assistance or assistive devices. LABORATORY DATA: Showed his serum sodium was 136, potassium 3.8, chloride 97, bicarbonate 26, anion gap of 13, BUN 51, creatinine 5.6, estimated GFR was 7.3 mL per minute. Her blood glucose was ____, calcium was 9.6. Total bilirubin, AST, ALT and alkaline phosphatase were normal. Her first troponin was 0.064. His total protein was 6.5, albumin was 3.5. Her chest x-ray showed mild stable interstitial opacities, may represent scarring or mild pulmonary edema. No consolidating pneumonia or pleural effusion. EKG showed sinus rhythm with left axis deviation, nonspecific ST-T changes. IMPRESSION: In summary, the patient has 3 sets of cardiac enzyme with chest pain, somewhat typical and atypical features with minimal troponin elevation, no acute EKG changes, coronary artery disease, status post PCI and stent deployment to left anterior descending in January, mild diastolic congestive heart failure, hypertensive heart disease with mild aortic stenosis, end-stage renal disease, on hemodialysis; type 2 diabetes mellitus. PLAN: To transfer the patient to [facility] to allow for dialysis and ____. We will resume all her medication. LEE ANN NAGEL MD DR: MARILU/sergei JOB#: [id number] / [id number]
[2017-06-12] MEDS ORDERED: PANTOPRAZOLE 40 MG TABLET. PO SCH (07:30)
[2017-06-12] MEDS ORDERED: ATORVASTATIN CALCIUM 20 MG TABLET PO SCH (09:00)
[2017-06-12] MEDS ORDERED: LISINOPRIL 20 MG TABLET PO SCH (09:00)
[2017-06-12] MEDS ORDERED: CITALOPRAM 20 MG TABLET. PO SCH (09:00)
[2017-06-12] MEDS ORDERED: CLOPIDOGREL BISULFATE 75 MG TABLET PO SCH (09:00)
[2017-06-12] MEDS ORDERED: FENOFIBRATE NANOCRYSTALLIZED 48 MG TABLET PO SCH (09:00)
== END 2017-06-11 16:46 | disposition short-term general hospital (02) | DRG 313 ==
LOC: ER 20:05 → ICU 22:16
PROVIDERS: ADMIT Internal Medicine; ATTEND Internal Medicine
DX: R07.89 Other chest pain (principal); I25.10 Atherosclerotic heart disease of native coronary artery without angina pectoris; I13.2 Hypertensive heart and chronic kidney disease with heart failure and with stage 5 chronic kidney disease, or end stage renal disease; E11.22 Type 2 diabetes mellitus with diabetic chronic kidney disease; E11.65 Type 2 diabetes mellitus with hyperglycemia; N18.6 End stage renal disease; I50.32 Chronic diastolic (congestive) heart failure; I35.0 Nonrheumatic aortic (valve) stenosis; E03.9 Hypothyroidism, unspecified; I48.91 Unspecified atrial fibrillation; E78.5 Hyperlipidemia, unspecified; F41.9 Anxiety disorder, unspecified; K21.9 Gastro-esophageal reflux disease without esophagitis; E21.3 Hyperparathyroidism, unspecified; I25.2 Old myocardial infarction; Z86.14 Personal history of Methicillin resistant Staphylococcus aureus infection; Z95.5 Presence of coronary angioplasty implant and graft; Z99.2 Dependence on renal dialysis; Z90.49 Acquired absence of other specified parts of digestive tract; Z98.49 Cataract extraction status, unspecified eye
CPT/HCPCS: 36415; 71045; 80053; 82553; 82947; 83690; 84484; 85025; 87641; 93005; J1815; Q0163

== ENCOUNTER 2017-08-10 19:26 | Emergency (ER) | payer MEDICARE ==
[~2017-08-10] VITALS: Ht 158.1 cm; Wt 72.5 kg
--- NOTE | 2017-08-10 19:42 | ED.ADGEN ---
Past History Past Medical History: Diabetes, GERD, High Cholesterol, Hypertension, Renal Failure Past Surgical History: Cholecystectomy, Other Alcohol Use: Rarely Drug Use: None Adult General Chief Complaint Chief Complaint " I fell and re- injury to my Rt. knee.. and scraped my nose.. this knee was doing good... but now it all blown up...".." It was just getting better...".." I put some heat on it.. and that just made it swell more..." HPI HPI Patient is a 81 year old female who presents with above hx and complaints of contusion and hematoma in Rt knee. Patient also received a abrasion to the nasal bridge and hematoma to scalp. No loss of consciousness. Prior similar injury to Rt knee. Pt does take Plavix and ASA and also gets HD- . Pt. can do right straight leg lift. Old abrasion Rt knee. Distal neurovascular equal to Lt. Very large hematoma. Patient normally follows with Dr. Mosher Review of Systems Review of Systems Constitutional: Denies fever or chills [] Eyes: Denies change in visual acuity, redness, or eye pain [] HENT: Denies nasal congestion or sore throat [] Respiratory: Denies cough or shortness of breath [] Cardiovascular: No additional information not addressed in HPI [] GI: Denies abdominal pain, nausea, vomiting, bloody stools or diarrhea [] : Denies dysuria or hematuria [] Musculoskeletal: Denies back pain or joint pain . complaints of []contusion to right knee Integument: Denies rash or skin lesions [] Neurologic: Denies headache, focal weakness or sensory changes [] Endocrine: Denies polyuria or polydipsia [] All other systems were reviewed and found to be within normal limits, except as documented in this note. Family History Family History Noncontributory Current Medications Current Medications Current Medications Medications (Trade) Dose Ordered Sig/Noah Start Time Stop Time Status Last Admin Dose Admin Ondansetron HCl (Zofran Odt) 8 mg 1X ONCE 08/10/17 22:30 08/10/17 22:31 DC 08/10/17 22:12 8 MG Oxycodone/ Acetaminophen (Percocet 5/325) 2 tab 1X ONCE 08/10/17 21:00 08/10/17 21:01 DC 08/10/17 22:20 2 TAB Tetanus/ Diphtheria Toxoids Adsorbed (Tenivac Vial) 0.5 ml ONCE ONCE 08/10/17 21:00 08/10/17 21:01 DC 08/10/17 22:16 0.5 ML Allergies Allergies Allergies Coded Allergies Type Severity Reaction Last Updated Verified No Known Drug Allergies 03/16/14 No Physical Exam Physical Exam Constitutional: Moderately acute distress, non-toxic appearance. [] HENT: Normocephalic, hematoma right forehead and abrasion to nasal bridge , bilateral external ears normal, oropharynx moist, no oral exudates, nose normal. [] Eyes: PERRLA, EOMI, conjunctiva normal, no discharge. [] Neck: Normal range of motion, no tenderness, supple, no stridor. [] Cardiovascular:Heart rate regular rhythm, no murmur [] Lungs & Thorax: Bilateral breath sounds equal at apexes auscultation [] Abdomen: Bowel sounds normal, soft, no tenderness, no masses, no pulsatile masses. [] Skin: Warm, dry, no erythema, no rash. [] Back: No tenderness, no CVA tenderness. [] Extremities: Bilateral knee tenderness, no cyanosis, no clubbing, ROM intact, right knee edema. [] Good thrill in AVshunt. Large hematoma right knee and old abrasion Neurologic: Alert and oriented X 3, normal motor function, normal sensory function, no focal deficits noted. [] Psychologic: Affect anxious, judgement normal, mood normal. [] Current Patient Data Vital Signs Vital Signs Date Time Temp Pulse Resp B/P (MAP) Pulse Ox O2 Delivery O2 Flow Rate FiO2 08/10/17 22:20 20 96 Room Air Lab Results Laboratory Tests Test 08/10/17 20:55 White Blood Count 8.2 x10^3/uL (4.0-11.0) Red Blood Count 3.54 x10^6/uL (3.50-5.40) Hemoglobin 11.9 g/dL (12.0-15.5) L Hematocrit 36.0 % (36.0-47.0) Mean Corpuscular Volume 102 fL (79-100) H Mean Corpuscular Hemoglobin 34 pg (25-35) Mean Corpuscular Hemoglobin Concent 33 g/dL (31-37) Red Cell Distribution Width 13.3 % (11.5-14.5) Platelet Count 238 x10^3/uL (140-400) Neutrophils (%) (Auto) 74 % (31-73) H Lymphocytes (%) (Auto) 18 % (24-48) L Monocytes (%) (Auto) 6 % (0-9) Eosinophils (%) (Auto) 2 % (0-3) Basophils (%) (Auto) 0 % (0-3) Neutrophils # (Auto) 6.0 x10^3uL (1.8-7.7) Lymphocytes # (Auto) 1.5 x10^3/uL (1.0-4.8) Monocytes # (Auto) 0.5 x10^3/uL (0.0-1.1) Eosinophils # (Auto) 0.1 x10^3/uL (0.0-0.7) Basophils # (Auto) 0.0 x10^3/uL (0.0-0.2) Prothrombin Time 11.0 SEC (9.4-11.4) Prothrombin Time INR 1.1 (0.9-1.1) PTT 25 SEC (23-33) Sodium Level 139 mmol/L (136-145) Potassium Level 3.8 mmol/L (3.5-5.1) Chloride Level 99 mmol/L (98-107) Carbon Dioxide Level 29 mmol/L (21-32) Anion Gap 11 (6-14) Blood Urea Nitrogen 59 mg/dL (7-20) H Creatinine 5.7 mg/dL (0.6-1.0) H Estimated GFR (Cockcroft-Gault) 7.1 Glucose Level 178 mg/dL (70-99) H Calcium Level 10.5 mg/dL (8.5-10.1) H Total Bilirubin 0.4 mg/dL (0.2-1.0) Direct Bilirubin 0.1 mg/dL (0.0-0.2) Aspartate Amino Transferase (AST) 22 U/L (15-37) Alanine Aminotransferase (ALT) 24 U/L (14-59) Alkaline Phosphatase 84 U/L (46-116) Creatine Kinase 57 U/L (26-192) Troponin I Quantitative 0.022 ng/mL (0-0.055) Total Protein 7.0 g/dL (6.4-8.2) Albumin 3.8 g/dL (3.4-5.0) EKG EKG [] Radiology/Procedures Radiology/Procedures My interpretation of knee films shows degenerative joint changes. Marked edema to right knee and area hematoma[] My interpretation of CT of head shows no shift, mass, edema, bleed, or fracture. Does have a hematoma to right forehead Course & Med Decision Making Course & Med Decision Making Pertinent Labs and Imaging studies reviewed. (See chart for details). No heat to knee. Ice pack as needed. No Aspirin or plavix x 2 days. Use walker. Polysporin to nasal bridge 4 x day. Return if any concerns. Take Tylenol for pain. Review X-ray s with primary. Knee may need aspiration when off plavix and aspirin and not right after HD. Must use walker, must not fall again on Rt knee. May need orthro follow up. [] Final Impression Final Impression 1. Contusion Rt. Knee- Large Hematoma 2. Nasal Abrasion[] 3. Head external hematoma Problems: Dragon Disclaimer Dragon Disclaimer This electronic medical record was generated, in whole or in part, using a voice recognition dictation system. LINUS CRZU MD Aug 10, 2017 19:42
[2017-08-10 21:33] LABS: ALBUMIN 3.8 g/dL (3.4-5.0); CALCIUM 10.5 mg/dL (8.5-10.1); CREATININE 5.7 mg/dL (0.6-1.0); DIRECT BILIRUBIN 0.1 mg/dL (0.0-0.2); GFR 7.1; POTASSIUM 3.8 mmol/L (3.5-5.1); TOTAL BILIRUBIN 0.4 mg/dL (0.2-1.0)
[2017-08-10 21:34] LABS: BASO % 0 % (0-3); EOS # 0.1 x10^3/uL (0.0-0.7); EOS % 2 % (0-3); HEMOGLOBIN 11.9 g/dL (12.0-15.5); LYMPH # 1.5 x10^3/uL (1.0-4.8); LYMPH % 18 % (24-48); MEAN CORPUSCULAR HEMOGLOBIN 34 pg (25-35); MEAN CORPUSCULAR HGB CONC 33 g/dL (31-37); MEAN CORPUSCULAR VOLUME 102 fL (79-100); MONO # 0.5 x10^3/uL (0.0-1.1); MONO % 6 % (0-9); NEUT % 74 % (31-73); PLATELET COUNT 238 x10^3/uL (140-400); RED BLOOD COUNT 3.54 x10^6/uL (3.50-5.40); RED CELL DISTRIBUTION WIDTH 13.3 % (11.5-14.5); WHITE BLOOD COUNT 8.2 x10^3/uL (4.0-11.0)
--- NOTE | 2017-08-10 21:45 | RAD ---
PQRS Compliance Statement: One or more of the following individualized dose reduction techniques were utilized for this examination: 1. Automated exposure control 2. Adjustment of the mA and/or kV according to patient size 3. Use of iterative reconstruction technique CT HEAD WITHOUT CONTRAST History: fell, hit head, contusion on right side of forehead above right orbit Comparison: None. Technique: Axial images are obtained of the head from the skull base through the vertex without IV contrast. Findings: No mass-effect, midline shift, extra-axial fluid collection, hemorrhage, or obvious acute infarction is identified. Basilar cisterns are patent. The ventricles and sulci are prominent, consistent with age-related cerebral atrophy. Bone windows demonstrate no acute calvarial abnormality. Mild right frontal scalp hematoma. The visualized paranasal sinuses are clear. Mastoid air cells are well aerated. IMPRESSION: 1. No acute intracranial abnormality. 2. Mild right frontal scalp hematoma. Electronically signed by: Herman Vincent MD (08/10/2017 9:42 PM) [facility]
[2017-08-10] MEDS: ONDANSETRON ODT 4 MG TAB.RAPDIS PO ONE (22:12)
[2017-08-10] MEDS: TETANUS AND DIPHTHERIA TOX/PF 0.5 ML VIAL. VAX IM ONE (22:16)
[2017-08-10] MEDS: oxyCODONE/APAP 5/325 1 TAB TABLET PO ONE (22:20)
[2017-08-10 22:30] VITALS: BP 141/82
--- NOTE | 2017-08-10 23:07 | EKG ---
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
--- NOTE | 2017-08-11 08:04 | RAD ---
4 views right left knee 08/10/2017 Clinical indication: Fall with right knee swelling. Comparison: Radiograph 09/15/2011 of the right knee. Findings: Left knee: Osteopenia. Diffuse vascular calcifications. No acute fracture or traumatic malalignment. No significant knee joint effusion. Mild tricompartment degenerative changes with joint space narrowing and osteophytosis. Normal bony alignment. Right knee: Osteopenia. No acute fracture or traumatic malalignment. Tricompartment degenerative changes, greatest in moderate degree medial and patellofemoral articulations, with joint space narrowing and osteophytosis. No significant knee joint effusion. There is significant medial and anterior knee soft tissue swelling. Impression: Right knee: 1. No acute fracture or traumatic malalignment. 2. Large soft tissue swelling most prominent at the anterior knee, maybe due to hematoma given fall. 3. Tricompartment degenerative changes of the knee, as detailed. Left knee: 1. No acute fracture or traumatic malalignment. 2. Tricompartment degenerative changes, as detailed.
== END 2017-08-10 22:39 | disposition home or self-care (01) ==
LOC: ER 19:26
DX: S80.01XA Contusion of right knee, initial encounter (principal); S00.03XA Contusion of scalp, initial encounter; S00.31XA Abrasion of nose, initial encounter; E11.9 Type 2 diabetes mellitus without complications; K21.9 Gastro-esophageal reflux disease without esophagitis; E78.00 Pure hypercholesterolemia, unspecified; I10 Essential (primary) hypertension; Z79.02 Long term (current) use of antithrombotics/antiplatelets; W19.XXXA Unspecified fall, initial encounter; Y93.89 Activity, other specified; Y99.8 Other external cause status; Y92.89 Other specified places as the place of occurrence of the external cause
CPT/HCPCS: 36415; 70450; 73564; 80048; 80076; 82550; 84484; 85025; 85610; 85730; 90471; 90714; 93005; 99285; Q0162

== ENCOUNTER 2017-08-14 16:32 | Emergency (ER) | payer MEDICARE ==
--- NOTE | 2017-08-14 17:15 | PHYS DOC ---
Past History Past Medical History: Diabetes, GERD, High Cholesterol, Hypertension, Renal Failure Past Surgical History: Cholecystectomy, Other Alcohol Use: Rarely Drug Use: None Adult General Chief Complaint Chief Complaint: WOUND CHECK HPI HPI 81-year-old female patient with history of chronic renal disease on hemodialysis had a fall 4 weeks ago with hematoma right knee and had another fall 5 days ago and was seen in this emergency room with unremarkable x-ray of her knee except for soft tissue edema. Patient states right knee want came off and large amount of clots and old blood came out from right knee wound. Patient denies fever and chills, nausea and vomiting, focal neuro deficit, change of motion of right knee movement. Patient was on Plavix and aspirin that was stopped 5 days ago. Review of Systems Review of Systems Constitutional: Denies fever or chills [] Eyes: Denies change in visual acuity, redness, or eye pain [] HENT: Denies nasal congestion or sore throat [] Respiratory: Denies cough or shortness of breath [] Cardiovascular: No additional information not addressed in HPI [] GI: Denies abdominal pain, nausea, vomiting, bloody stools or diarrhea [] : Denies dysuria or hematuria [] Musculoskeletal: Denies back pain , reports joint pain [] Integument: Reports ecchymosis and contusion Neurologic: Denies headache, focal weakness or sensory changes [] Endocrine: Denies polyuria or polydipsia [] All other systems were reviewed and found to be within normal limits, except as documented in this note. Allergies Allergies Allergies Coded Allergies Type Severity Reaction Last Updated Verified No Known Drug Allergies 03/16/14 No Physical Exam Physical Exam Constitutional: Well developed, moderately acute distress, non-toxic appearance. [] HENT: Normocephalic, multiple old facial contusion and ecchymosis Eyes: PERRLA, EOMI, conjunctiva normal, no discharge. [] Neck: Normal range of motion, no tenderness, supple, no stridor. [] Cardiovascular:Heart rate regular rhythm, no murmur [] Lungs & Thorax: Bilateral breath sounds equal at apexes on auscultation [] Abdomen: Bowel sounds normal, soft, no tenderness, no masses, no pulsatile masses. [] Old scar Skin: Multiple areas of contusion and ecchymosis in face and upper and lower extremities Back: No tenderness, no CVA tenderness. [] Extremities: Right knee with moderate edema and erythema of the skin, central 1- 2 cm open wound with drainage of old blood, no joint effusion or limited range of motion. Arthritic changes. Shunt has good thrill. Neurologic: Alert and oriented X 3, normal motor function, normal sensory function, no focal deficits noted. [] Psychologic: Affect normal, judgement normal, mood normal. [] EKG EKG [] Radiology/Procedures Radiology/Procedures [] Course & Med Decision Making Course & Med Decision Making Pertinent Labs are pending. Evaluation of patient in ER showed 81-year-old female patient with history of chronic renal failure and dialysis and frequent falls with multiple old ecchymoses and contusion and hematoma presented to ER with drainage of old blood from right knee wound. Labs was pending. Patient's care transferred to Dr. Gtz at 1800. Pt had been previous examine by me on prior visit to ED for repeat contusion and hematoma to Rt. knee. Area of prior abrasion eschar- currently draining old clotted blood. Hematoma is markedly reduced from previous exam. Wound was not hot. She reports improvement of right knee symptoms. Wound cleaned with peroxide. Dressing applied. Patient to monocyte closely for infection. Keep follow-up primary care. Clean wound 4 times a day with peroxide and application of Polysporin . Patient to expect in continued drainage from wound. Keep wound clean and dry. Return if any concerns. Patient must start using a walker for all ambulation. Impression- 1. Hematoma - Rt. Knee- Hx prior fall s x 2 2. History of diabetes 3. History of hypertension 4. History of end-stage renal disease with hemodialysis on Wednesdays and Fridays 5. History of peripheral neuropathy 6. Gait disorder Dragon Disclaimer Dragon Disclaimer This electronic medical record was generated, in whole or in part, using a voice recognition dictation system. Departure Departure: Referrals: JANELLE GLEASON DO (PCP) JOSE MYLES MD Aug 14, 2017 17:15 LINUS GTZ MD Aug 15, 2017 04:09
[2017-08-14 17:41] LABS: BASO % 1 % (0-3); EOS # 0.1 x10^3/uL (0.0-0.7); EOS % 2 % (0-3); HEMATOCRIT 32.5 % (36.0-47.0); HEMOGLOBIN 11.1 g/dL (12.0-15.5); LYMPH # 1.4 x10^3/uL (1.0-4.8); LYMPH % 20 % (24-48); MEAN CORPUSCULAR HEMOGLOBIN 35 pg (25-35); MEAN CORPUSCULAR HGB CONC 34 g/dL (31-37); MEAN CORPUSCULAR VOLUME 101 fL (79-100); MONO # 0.5 x10^3/uL (0.0-1.1); MONO % 8 % (0-9); NEUT % 70 % (31-73); PLATELET COUNT 208 x10^3/uL (140-400); RED BLOOD COUNT 3.22 x10^6/uL (3.50-5.40); RED CELL DISTRIBUTION WIDTH 13.3 % (11.5-14.5); WHITE BLOOD COUNT 7.1 x10^3/uL (4.0-11.0)
[2017-08-14 17:55] LABS: ALBUMIN 3.4 g/dL (3.4-5.0); C REACTIVE PROTEIN 14.5 mg/L (0-3.3); CREATININE 5.6 mg/dL (0.6-1.0); GFR 7.3; POTASSIUM 4.1 mmol/L (3.5-5.1); TOTAL BILIRUBIN 0.5 mg/dL (0.2-1.0); TOTAL PROTEIN 6.8 g/dL (6.4-8.2)
[2017-08-14 18:45] VITALS: BP 166/75
[2017-08-14 23:00] LABS: PLT ESTIMATE ADEQUATE (ADEQUATE)
== END 2017-08-14 18:45 | disposition home or self-care (01) ==
LOC: ER 16:32
DX: S80.01XA Contusion of right knee, initial encounter (principal); I12.0 Hypertensive chronic kidney disease with stage 5 chronic kidney disease or end stage renal disease; E11.22 Type 2 diabetes mellitus with diabetic chronic kidney disease; N18.6 End stage renal disease; K21.9 Gastro-esophageal reflux disease without esophagitis; E78.00 Pure hypercholesterolemia, unspecified; E11.42 Type 2 diabetes mellitus with diabetic polyneuropathy; R26.9 Unspecified abnormalities of gait and mobility; Z99.2 Dependence on renal dialysis; W19.XXXA Unspecified fall, initial encounter; Y93.89 Activity, other specified; Y92.89 Other specified places as the place of occurrence of the external cause; Y99.8 Other external cause status
CPT/HCPCS: 36415; 80053; 83605; 85025; 86140; 99284

== ENCOUNTER → 2018-02-23 | Outpatient (CLI) | payer MEDICARE ==
[~2018-02-23] MED LIST changes: +0.9 % SODIUM CHLORIDE 10 ML VIAL ONE; +IOHEXOL 300 MG/ML 50 ML VIAL. ONE; +LIDOCAINE 1% PF 2 ML VIAL. ONE; +methylPREDNISolone ACETATE 80 MG/ML VIAL. ONE
== END | disposition home or self-care (01) ==
LOC: SURG 12:50
PROVIDERS: ATTEND Anesthesiology Pain Medicine
DX: M48.061 Spinal stenosis, lumbar region without neurogenic claudication (principal); M54.16 Radiculopathy, lumbar region; I12.9 Hypertensive chronic kidney disease with stage 1 through stage 4 chronic kidney disease, or unspecified chronic kidney disease; E11.22 Type 2 diabetes mellitus with diabetic chronic kidney disease; N18.3 Chronic kidney disease, stage 3 (moderate); M19.90 Unspecified osteoarthritis, unspecified site; Z79.82 Long term (current) use of aspirin; Z79.899 Other long term (current) drug therapy; Z79.4 Long term (current) use of insulin; Z95.5 Presence of coronary angioplasty implant and graft
CPT/HCPCS: 62323; J1040; Q9967; 64483

== ENCOUNTER → 2018-03-22 | Outpatient (CLI) | payer MEDICARE ==
[~2018-03-22] MED LIST changes: -0.9 % SODIUM CHLORIDE 10 ML VIAL ONE; -IOHEXOL 300 MG/ML 50 ML VIAL. ONE; -LIDOCAINE 1% PF 2 ML VIAL. ONE; -methylPREDNISolone ACETATE 80 MG/ML VIAL. ONE
--- NOTE | 2018-03-22 14:52 | CARD ---
MR#: [id number] Date of Study: 03/22/2018 Ordering Physician: SHEILA GARCIA, Referring Physician: SHEILA GARCIA, Tech: Destiny Porras RDCS APPROVED REPORT EXAM: Two-dimensional and M-mode echocardiogram with Doppler and color Doppler. Other Information Quality : AverageHR: 74bpm Rhythm : NSR w/ PVCs INDICATION CAD 2D DIMENSIONS Left Atrium(2D)4.2 (1.6-4.0cm)IVSd1.3 (0.7-1.1cm) Aortic Root(2D)2.8 (2.0-3.7cm)LVDd5.1 (3.9-5.9cm) LVOT Diameter1.8 (1.8-2.4cm)PWd1.2 (0.7-1.1cm) LVDs3.4 (2.5-4.0cm)FS (%) 33.8 % SV78.2 mlLVEF(%)62.3 (>50%) M-Mode DIMENSIONS Left Atrium(MM)4.48 (2.5-4.0cm)Aortic Root2.76 (2.2-3.7cm) Aortic Valve AoV Peak Gerardo.252.9cm/sAoV VTI60.1cm AO Peak GR.25.6mmHgLVOT Peak Gerardo.93.1cm/s LVOT VTI 23.33cmAO Mean GR.16mmHg MORIS (VMAX)0.99ba4GNJ (VTI)0.96cm2 Mitral Valve MV E Qrqkkwmx428.3cm/sMV E Peak Gr.7mmHg MV DECEL [id number] A Adibazop476.8cm/s MV E Mean Gr.2mmHgE/A Ratio1.1 MV A [id number] Pulmonary Valve PV Peak Maciuwcq955.1cm/sPV Peak Grad.6mmHg Tricuspid Valve TR P. Hvvejooi581dc/sRAP MHGERHZQ1gcAy TR Peak Gr.88lwXuIZAG86tbKt Pulmonary Vein S1 Zcwjsdym43.5cm/sD2 Lfgjjxug26.1cm/s LEFT VENTRICLE The left ventricle is normal size. There is mild concentric left ventricular hypertrophy. The left ve ntricular systolic function is normal. The Ejection Fraction is 60-65%. There is normal LV segmental wall motion. Transmitral Doppler flow pattern is Grade II-pseudonormal filling dynamics. RIGHT VENTRICLE The right ventricle is normal size. There is normal right ventricular wall thickness. The right ventr icular systolic function is normal. ATRIA The left atrium is mildly dilated. The right atrium size is normal. The interatrial septum is intact with no evidence for an atrial septal defect or patent foramen ovale as noted on 2-D or Doppler imagi ng. AORTIC VALVE The aortic valve is moderately calcified. The aortic valve is trileaflet. Doppler and Color Flow reve aled no significant aortic regurgitation. There is moderate valvular aortic stenosis. Calculated aort ic valve area is 0.96 cm2 with maximum pressure gradient of 26 mmHg and mean pressure gradient of 16 mmHg. MITRAL VALVE Mitral annular calcification is mild to moderate. There is no evidence of mitral valve prolapse. Ther e is no mitral valve stenosis. Doppler and Color-flow revealed mild mitral regurgitation. TRICUSPID VALVE The tricuspid valve is normal in structure and function. Doppler and Color Flow revealed trace tricus pid regurgitation. The PA pressure was estimated at 29 mmHg. There is no tricuspid valve prolapse or vegetation. There is no tricuspid valve stenosis. PULMONIC VALVE Pulmonic valve not well visualized. GREAT VESSELS The aortic root is normal in size. The ascending aorta is normal in size. The IVC is normal in size a nd collapses >50% with inspiration. PERICARDIAL EFFUSION There is no evidence of significant pericardial effusion. Critical Notification Critical Value: No <Conclusion> The left ventricular systolic function is normal. The Ejection Fraction is 60-65%. There is normal LV segmental wall motion. Transmitral Doppler flow pattern is Grade II-pseudonormal filling dynamics. The left atrium is mildly dilated. Moderate valvular aortic stenosis. Mild mitral regurgitation. Trace tricuspid regurgitation. The PA pressure was estimated at 29 mmHg. There is no evidence of significant pericardial effusion. Signed by : Keith Early, Electronically Approved : 03/22/2018 14:51:13
== END | disposition home or self-care (01) ==
LOC: ECHO 13:57
PROVIDERS: ATTEND Internal Medicine Cardiovascular Disease
DX: I25.10 Atherosclerotic heart disease of native coronary artery without angina pectoris (principal); I08.0 Rheumatic disorders of both mitral and aortic valves
CPT/HCPCS: 93306

== ENCOUNTER → 2018-03-23 | Outpatient (CLI) | payer MEDICARE ==
[~2018-03-23] MED LIST changes: +BUPIVACAINE MPF 0.5% 30 ML VIAL. ONE; +IOHEXOL 300 MG/ML 50 ML VIAL. ONE; +LIDOCAINE 1% PF 30 ML VIAL. ONE; +methylPREDNISolone ACETATE 80 MG/ML VIAL. ONE
== END | disposition home or self-care (01) ==
LOC: SURG 10:03
PROVIDERS: ATTEND Anesthesiology Pain Medicine
DX: M47.816 Spondylosis without myelopathy or radiculopathy, lumbar region (principal); G89.29 Other chronic pain; I12.9 Hypertensive chronic kidney disease with stage 1 through stage 4 chronic kidney disease, or unspecified chronic kidney disease; E11.22 Type 2 diabetes mellitus with diabetic chronic kidney disease; N18.3 Chronic kidney disease, stage 3 (moderate); Z99.2 Dependence on renal dialysis; Z79.82 Long term (current) use of aspirin; Z79.899 Other long term (current) drug therapy; Z79.4 Long term (current) use of insulin; E78.00 Pure hypercholesterolemia, unspecified; M19.90 Unspecified osteoarthritis, unspecified site; Z95.5 Presence of coronary angioplasty implant and graft; Z90.49 Acquired absence of other specified parts of digestive tract
CPT/HCPCS: 64493; 64494; J1040; J2001; J3490; Q9967; 77002

== ENCOUNTER → 2018-05-04 | Outpatient (CLI) | payer MEDICARE | END | disposition home or self-care (01) | LOC: SURG 09:50 | PROVIDERS: ATTEND Anesthesiology Pain Medicine | DX: M47.816 Spondylosis without myelopathy or radiculopathy, lumbar region (principal); I12.9 Hypertensive chronic kidney disease with stage 1 through stage 4 chronic kidney disease, or unspecified chronic kidney disease; E11.22 Type 2 diabetes mellitus with diabetic chronic kidney disease; N18.3 Chronic kidney disease, stage 3 (moderate); M19.90 Unspecified osteoarthritis, unspecified site; Z79.82 Long term (current) use of aspirin; Z79.899 Other long term (current) drug therapy; Z79.4 Long term (current) use of insulin; Z95.5 Presence of coronary angioplasty implant and graft | CPT/HCPCS: 64493; 64494; J1040; J2001; J3490; Q9967; 64483; 64484 ==

== ENCOUNTER → 2018-06-30 | Outpatient (CLI) | payer MEDICARE ==
[~2018-06-30] MED LIST changes: +0.9 % SODIUM CHLORIDE 10 ML VIAL ONE; -BUPIVACAINE MPF 0.5% 30 ML VIAL. ONE
== END | disposition home or self-care (01) ==
LOC: SURG 11:10
PROVIDERS: ATTEND Anesthesiology Pain Medicine
DX: M54.16 Radiculopathy, lumbar region (principal); I12.9 Hypertensive chronic kidney disease with stage 1 through stage 4 chronic kidney disease, or unspecified chronic kidney disease; E11.22 Type 2 diabetes mellitus with diabetic chronic kidney disease; N18.3 Chronic kidney disease, stage 3 (moderate); Z99.2 Dependence on renal dialysis; K21.9 Gastro-esophageal reflux disease without esophagitis; E03.9 Hypothyroidism, unspecified; Z90.49 Acquired absence of other specified parts of digestive tract; Z98.890 Other specified postprocedural states; Z79.4 Long term (current) use of insulin; Z79.899 Other long term (current) drug therapy; M19.90 Unspecified osteoarthritis, unspecified site; Z79.82 Long term (current) use of aspirin; Z95.5 Presence of coronary angioplasty implant and graft
CPT/HCPCS: 62323; J1040; J2001; Q9967

== ENCOUNTER → 2019-10-04 | Outpatient (CLI) | payer MEDICARE ==
[~2019-10-04] MED LIST changes: -0.9 % SODIUM CHLORIDE 10 ML VIAL ONE; -CETI10TA22 PO; +CETI10TA24 PO; -FENO48TA2 PO; +FENO48TA3 PO; -IOHEXOL 300 MG/ML 50 ML VIAL. ONE; -LIDOCAINE 1% PF 30 ML VIAL. ONE; -methylPREDNISolone ACETATE 80 MG/ML VIAL. ONE
--- NOTE | 2019-10-04 14:29 | CARD ---
MR#: [id number] Date of Study: 10/04/2019 Ordering Physician: SHEILA GARCIA, Referring Physician: SHEILA GARCIA, Tech: Adriana Simmons APPROVED REPORT EXAM: Two-dimensional and M-mode echocardiogram with Doppler and color Doppler. Other Information Quality : AverageHR: 52bpm INDICATION Cardiac Disease: CAD RISK FACTORS Diabetes 2D DIMENSIONS Left Atrium(2D)4.4 (1.6-4.0cm)IVSd1.4 (0.7-1.1cm) Aortic Root(2D)2.6 (2.0-3.7cm)LVDd5.1 (3.9-5.9cm) LVOT Diameter1.9 (1.8-2.4cm)PWd1.3 (0.7-1.1cm) LVDs3.0 (2.5-4.0cm)FS (%) 40.3 % SV86.4 mlLVEF(%)70.7 (>50%) Aortic Valve AoV Peak Gerardo.275.7cm/sAoV VTI76.0cm AO Peak GR.30.4mmHgLVOT Peak Gerardo.121.1cm/s LVOT VTI 35.40cmAO Mean GR.16mmHg MORIS (VMAX)1.57jw3FZO (VTI)1.31cm2 Mitral Valve MV E Dbivmtig095.1cm/sMV E Peak Gr.168mmHg MV DECEL VPBS149nxVD A Ahaklotz669.7cm/s MV E Mean Gr.4mmHgE/A Ratio1.3 Pulmonary Valve PV Peak Rnzhsnur82.1cm/sPV Peak Grad.3mmHg Tricuspid Valve TR P. Uqdabyir287pi/sRAP CCOJOOEQ9jkRc TR Peak Gr.79wwApAHQD73wnJe Pulmonary Vein S1 Xltsccnt82.3cm/sD2 Papukgtk45.8cm/s LEFT VENTRICLE The left ventricle is normal size. There is moderate concentric left ventricular hypertrophy. The lef t ventricular systolic function is normal. The Ejection Fraction is 60-65%. There is normal LV segmen ashlie wall motion. Transmitral Doppler flow pattern is Grade II-pseudonormal filling dynamics. RIGHT VENTRICLE The right ventricle is normal size. There is normal right ventricular wall thickness. The right ventr icular systolic function is normal. ATRIA The left atrium size is normal. The right atrium size is normal. The interatrial septum is intact wit h no evidence for an atrial septal defect or patent foramen ovale as noted on 2-D or Doppler imaging. AORTIC VALVE The aortic valve is calcified and displays decreased opening. Doppler and Color Flow revealed trace a ortic regurgitation. Calculated aortic valve area is 1.3 There is moderate valvular aortic stenosis. cm2 with maximum pressure gradient of 31 mmHg and mean pressure gradient of 17 mmHg. MITRAL VALVE The mitral valve is moderately thickened. There is no evidence of mitral valve prolapse. Mitral valve mean gradient 3.8 mmHg. Doppler and Color-flow revealed trace to mild mitral regurgitation. TRICUSPID VALVE The tricuspid valve is normal in structure and function. Doppler and Color Flow revealed trace tricus pid regurgitation with an estimated PAP of 43 mmHg. There is no tricuspid valve stenosis. PULMONIC VALVE The pulmonic valve is not well visualized. Doppler and Color Flow revealed no pulmonic valvular regur gitation. GREAT VESSELS The aortic root is normal in size. The IVC is normal in size and collapses >50% with inspiration. PERICARDIAL EFFUSION There is no evidence of significant pericardial effusion. Critical Notification Critical Value: No <Conclusion> The left ventricular systolic function is normal. The Ejection Fraction is 60-65%. There is normal LV segmental wall motion. Transmitral Doppler flow pattern is Grade II-pseudonormal filling dynamics. There is moderate valvular aortic stenosis. Mild mitral regurgitation. Trace tricuspid regurgitation with an estimated PAP of 43 mmHg. There is no evidence of significant pericardial effusion. Signed by : Keith Early, Electronically Approved : 10/04/2019 14:28:50
== END | disposition home or self-care (01) ==
LOC: ECHO 12:26
PROVIDERS: ATTEND Internal Medicine Cardiovascular Disease
DX: I08.0 Rheumatic disorders of both mitral and aortic valves (principal); I25.10 Atherosclerotic heart disease of native coronary artery without angina pectoris
CPT/HCPCS: 93306

== ENCOUNTER 2020-02-19 10:57 | Emergency (ER) | payer MEDICARE ==
[~2020-02-19] VITALS: Ht 157.5 cm; Wt 71.7 kg
[~2020-02-19 10:57] MED LIST changes: -CETI10TA24 PO; +CETI10TA74 PO
--- NOTE | 2020-02-19 11:22 | PHYS DOC ---
Past History Past Medical History: Diabetes, GERD, High Cholesterol, Heart Disease, Renal Failure Past Surgical History: Other Alcohol Use: None Drug Use: None Adult General Chief Complaint Chief Complaint: DIZZY/LIGHT HEADED HPI HPI Patient is a 84-year-old female who presents with her daughter for dizziness and fatigue. Patient was seen prior to arrival by primary care physician and voiced episodes of dizziness and generalized fatigue prompting her to be evaluated in our ER. Patient reports this is an acute on chronic problem. Patient has extensive past medical history that is most remarkable for starting peritoneal hemodialysis last x1 month. Patient and daughter report she has had issues getting used to this and has often had too much fluid pulled off causing her to be dizzy. In addition, patient on various high-risk medication such as insulin that could be causing dizziness; however, patient nor daughter have been checking fingerstick blood sugars during these episodes. Patient lives at local [facility] living and has continuous care provided by daughter there in addition. Patient has no recent fever, febrile illness, or any other concerning symptoms such as chest pain, shortness of breath, abdominal pain, neurologic deficits, falls etc. Review of Systems Review of Systems Fourteen body systems of review of systems have been reviewed. See HPI for pertinent positives and negative responses, other gonzalez all other systems are negative, non-pertinent or non-contributory Allergies Allergies Allergies Coded Allergies Type Severity Reaction Last Updated Verified No Known Drug Allergies 03/16/14 No Physical Exam Physical Exam Constitutional: Well developed, well nourished, no acute distress, non-toxic appearance. HENT: Normocephalic, atraumatic, bilateral external ears normal, oropharynx moist, no oral exudates, nose normal. Eyes: PERRLA, EOMI, conjunctiva normal, no discharge. Neck: Normal range of motion, no tenderness, supple, no stridor. Cardiovascular: Heart rate regular, sinus rhythm, no murmurs rubs or gallops Lungs & Thorax: Bilateral breath sounds clear to auscultation Abdomen: Bowel sounds normal, soft, no tenderness, no masses, no pulsatile masses. Findings consistent with current peritoneal dialysis patient. Nonsurgical abdomen, no peritoneal signs Skin: Warm, dry, no erythema, no rash. Back: No tenderness, no CVA tenderness. Extremities: No tenderness, no cyanosis, no clubbing, ROM intact, no edema. Neurologic: Alert and oriented X 3, negative hints exam, normal motor & sensory function, no focal deficits noted. Psychologic: Affect normal, judgement normal, mood normal. Current Patient Data Vital Signs Vital Signs Date Time Temp Pulse Resp B/P (MAP) Pulse Ox O2 Delivery O2 Flow Rate FiO2 02/19/20 14:03 97.3 55 16 138/50 (79) 98 02/19/20 13:00 Room Air Lab Results Laboratory Tests Test 02/19/20 11:30 02/19/20 12:50 02/19/20 13:50 02/19/20 14:20 White Blood Count 10.1 x10^3/uL (4.0-11.0) Red Blood Count 3.00 x10^6/uL (3.50-5.40) Hemoglobin 9.9 g/dL (12.0-15.5) Hematocrit 29.4 % (36.0-47.0) Mean Corpuscular Volume 98 fL (79-100) Mean Corpuscular Hemoglobin 33 pg (25-35) Mean Corpuscular Hemoglobin Concent 34 g/dL (31-37) Red Cell Distribution Width 16.1 % (11.5-14.5) Platelet Count 235 x10^3/uL (140-400) Neutrophils (%) (Auto) 73 % (31-73) Lymphocytes (%) (Auto) 17 % (24-48) Monocytes (%) (Auto) 8 % (0-9) Eosinophils (%) (Auto) 2 % (0-3) Basophils (%) (Auto) 1 % (0-3) Neutrophils # (Auto) 7.3 x10^3uL (1.8-7.7) Lymphocytes # (Auto) 1.7 x10^3/uL (1.0-4.8) Monocytes # (Auto) 0.8 x10^3/uL (0.0-1.1) Eosinophils # (Auto) 0.2 x10^3/uL (0.0-0.7) Basophils # (Auto) 0.1 x10^3/uL (0.0-0.2) Sodium Level 137 mmol/L (136-145) Potassium Level 3.6 mmol/L (3.5-5.1) Chloride Level 96 mmol/L (98-107) Carbon Dioxide Level 24 mmol/L (21-32) Anion Gap 17 (6-14) Blood Urea Nitrogen 67 mg/dL (7-20) Creatinine 12.0 mg/dL (0.6-1.0) Estimated GFR (Cockcroft-Gault) 3.0 BUN/Creatinine Ratio 6 (6-20) Glucose Level 54 mg/dL (70-99) Calcium Level 10.0 mg/dL (8.5-10.1) Total Bilirubin 0.3 mg/dL (0.2-1.0) Aspartate Amino Transf (AST/SGOT) 27 U/L (15-37) Alanine Aminotransferase (ALT/SGPT) 22 U/L (14-59) Alkaline Phosphatase 89 U/L (46-116) Troponin I Quantitative 0.025 ng/mL (0-0.055) Total Protein 6.1 g/dL (6.4-8.2) Albumin 2.6 g/dL (3.4-5.0) Albumin/Globulin Ratio 0.7 (1.0-1.7) Glucose (Fingerstick) 95 mg/dL (70-99) 74 mg/dL (70-99) 88 mg/dL (70-99) EKG EKG EKG ordered and interpreted by myself at 1121 hrs. as sinus bradycardia at 48 bpm, prolonged ME at 238 otherwise intervals unremarkable. Left axis deviation, no ischemic findings, no STEMI Radiology/Procedures Radiology/Procedures PROCEDURE: PORTABLE CHEST 1V Examination: PORTABLE CHEST 1V History: Reason: dizzy / Comparison/Correlation: 06/10/2017 Findings: Portable upright frontal view of the chest was obtained. Heart size is borderline. No pneumothorax. No infiltrate or pleural effusion. Subtle interstitial thickening of the lung acevedo similar to prior exam of limited. Stent material in the left axilla levels present. Bony structures are grossly unremarkable. Impression: No infiltrate. Electronically signed by: Joseph Pardo MD (02/19/2020 11:50 AM) [id number] Heart Score HEART Score for Chest Pain: HEART Score for Chest Pain Response (Comments) Value History Slighlty/Non-Suspicious 0 ECG Normal 0 Age > 65 2 Risk Factors >3 Risk Factors or Hx CAD 2 Troponin < Normal Limit 0 Total 4 Risk Factors: Risk Factors: DM, Current or recent (<one month) smoker, HTN, HLP, family history of CAD, obesity. Risk Scores: Risk Factors: DM, Current or recent (<one month) smoker, HTN, HLP, family history of CAD, obesity. Course & Med Decision Making Course & Med Decision Making Pertinent Labs and Imaging studies reviewed. (See chart for details) Discussed most likely diagnoses of hypoglycemia versus symptomatic bradycardia versus complications from peritoneal dialysis Patient hypoglycemic today, corrected with dextrose and p.o. intake. Patient has been eating less since starting peritoneal dialysis 4 weeks ago, has not changed insulin requirements. Patient educated on decreased insulin requirements today Patient bradycardic throughout examination; however, I do not feel this is the primary cause of patient's dizziness. Patient still getting used to peritoneal dialysis, is actually under goal weight today. On-call prepared foods production team member at [facility] called and case discussed, patient advised to call peritoneal dialysis nurse to review necessary changes for tonight's session Patient monitored throughout ER visit without any issues after correcting initial hypoglycemia. Patient ambulatory with assistive device, has good home support and [id number] care by daughter, joint decision to decrease insulin requirements and keep fingerstick blood sugar log to present to PCP in upcoming 72 hours for review Strict return precautions were discussed with good understanding by patient and daughter, all questions and concerns addressed prior to ER departure in stable condition Dragon Disclaimer Dragon Disclaimer This electronic medical record was generated, in whole or in part, using a voice recognition dictation system. Departure Departure: Impression: Primary Impression: Hypoglycemia due to type 2 diabetes mellitus Additional Impressions: Peritoneal dialysis status Dizziness Disposition: 01 DC HOME SELF CARE/HOMELESS Condition: STABLE Referrals: TERI GARCIA MD (PCP) Patient Instructions: Hypoglycemia (Low Blood Sugar), Peritoneal Dialysis Additional Instructions: As discussed at length prior to ER departure, please contact your peritoneal dialysis nurse to receive further instruction regarding tonight's dialysis session Please contact your primary care physician office to discuss need for close follow-up in upcoming 72 hours. Please decrease total amount of insulin use as instructed in ER prior to discharge. Please keep blood sugar log so primary care physician can review on follow-up If any concerning signs or symptoms present prior to outpatient follow-up please do not hesitate to come back for repeat evaluation It was a pleasure to take care of you today and I wish you a speedy recovery Problem Qualifiers MADELYN DEVI DO Feb 19, 2020 11:22
[2020-02-19 11:47] LABS: BASO # 0.1 x10^3/uL (0.0-0.2); BASO % 1 % (0-3); EOS # 0.2 x10^3/uL (0.0-0.7); EOS % 2 % (0-3); HEMATOCRIT 29.4 % (36.0-47.0); HEMOGLOBIN 9.9 g/dL (12.0-15.5); LYMPH # 1.7 x10^3/uL (1.0-4.8); LYMPH % 17 % (24-48); MEAN CORPUSCULAR HEMOGLOBIN 33 pg (25-35); MEAN CORPUSCULAR HGB CONC 34 g/dL (31-37); MEAN CORPUSCULAR VOLUME 98 fL (79-100); MONO # 0.8 x10^3/uL (0.0-1.1); MONO % 8 % (0-9); NEUT # 7.3 x10^3uL (1.8-7.7); NEUT % 73 % (31-73); PLATELET COUNT 235 x10^3/uL (140-400); RED CELL DISTRIBUTION WIDTH 16.1 % (11.5-14.5); WHITE BLOOD COUNT 10.1 x10^3/uL (4.0-11.0)
--- NOTE | 2020-02-19 11:53 | RAD ---
Examination: PORTABLE CHEST 1V History: Reason: dizzy / Comparison/Correlation: 06/10/2017 Findings: Portable upright frontal view of the chest was obtained. Heart size is borderline. No pneumothorax. No infiltrate or pleural effusion. Subtle interstitial thickening of the lung acevedo similar to prior exam of limited. Stent material in the left axilla levels present. Bony structures are grossly unremarkable. Impression: No infiltrate. Electronically signed by: Joseph Pardo MD (02/19/2020 11:50 AM) [id number]
[2020-02-19 11:56] LABS: POTASSIUM 3.6 mmol/L (3.5-5.1)
[2020-02-19 12:02] LABS: ALBUMIN 2.6 g/dL (3.4-5.0); ALBUMIN/GLOBULIN RATIO 0.7 (1.0-1.7); TOTAL BILIRUBIN 0.3 mg/dL (0.2-1.0); TOTAL PROTEIN 6.1 g/dL (6.4-8.2)
--- NOTE | 2020-02-19 12:25 | EKG ---
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
[2020-02-19] MEDS ORDERED: DEXTROSE 25% 10 ML DISP.SYRIN. IV ONE (12:30)
[2020-02-19 14:03] VITALS: BP 138/50
== END 2020-02-19 14:26 | disposition home or self-care (01) ==
LOC: ER 10:57
DX: E11.649 Type 2 diabetes mellitus with hypoglycemia without coma (principal); R42 Dizziness and giddiness; E11.22 Type 2 diabetes mellitus with diabetic chronic kidney disease; N18.9 Chronic kidney disease, unspecified; K21.9 Gastro-esophageal reflux disease without esophagitis; E78.00 Pure hypercholesterolemia, unspecified; Z99.2 Dependence on renal dialysis
CPT/HCPCS: 36415; 71045; 80053; 82947; 84484; 85025; 93005; 96374; 99285; J7060

== ENCOUNTER → 2020-02-21 | Outpatient (CLI) | payer MEDICARE ==
[2020-02-19 14:03] VITALS: BP 138/50
--- NOTE | 2020-02-21 17:32 | RAD ---
Abdomen 2 views INDICATION: Peritoneal dialysis catheter placement check. COMPARISON: No relevant comparisons immediately available. FINDINGS: Lung bases are unremarkable. Supine and upright views of the abdomen show a left lower quadrant peritoneal dialysis catheter coiled at the pelvic floor. A percutaneous enterostomy tube is present in the left midabdomen as well. There is mild gaseous distention of the stomach. A small amount of free intraperitoneal air is present. Cholecystectomy surgical clips are noted along with calcifications in the splenic artery. IMPRESSION: Satisfactory positioning of the peritoneal dialysis catheter in the lower pelvis with free intraperitoneal air presumably related to catheter placement and/or manipulation. Electronically signed by: Dolly Alvarenga MD (02/21/2020 5:29 PM) [id number]
== END ==
LOC: RAD 16:49
PROVIDERS: ATTEND Internal Medicine Nephrology
DX: R10.9 Unspecified abdominal pain (principal); N18.6 End stage renal disease; Z90.49 Acquired absence of other specified parts of digestive tract
CPT/HCPCS: 74019

== ENCOUNTER → 2020-03-06 | Outpatient (CLI) | payer MEDICARE ==
[~2020-03-06] MED LIST changes: +BUPIVACAINE MPF 0.25% 10 ML VIAL. ONE; +LIDOCAINE 1% PF 30 ML VIAL. ONE; +methylPREDNISolone ACETATE 80 MG/ML VIAL. ONE
[2020-03-06 13:07] VITALS: BP 139/60
== END | disposition home or self-care (01) ==
LOC: SURG 11:43
PROVIDERS: ATTEND Anesthesiology
DX: M47.816 Spondylosis without myelopathy or radiculopathy, lumbar region (principal); I13.2 Hypertensive heart and chronic kidney disease with heart failure and with stage 5 chronic kidney disease, or end stage renal disease; E11.22 Type 2 diabetes mellitus with diabetic chronic kidney disease; I50.32 Chronic diastolic (congestive) heart failure; N18.6 End stage renal disease; E11.65 Type 2 diabetes mellitus with hyperglycemia; E11.649 Type 2 diabetes mellitus with hypoglycemia without coma; E11.42 Type 2 diabetes mellitus with diabetic polyneuropathy; E78.00 Pure hypercholesterolemia, unspecified; D64.9 Anemia, unspecified; K21.9 Gastro-esophageal reflux disease without esophagitis; I25.10 Atherosclerotic heart disease of native coronary artery without angina pectoris; E03.9 Hypothyroidism, unspecified; M19.90 Unspecified osteoarthritis, unspecified site; Z79.4 Long term (current) use of insulin; Z79.82 Long term (current) use of aspirin; Z79.02 Long term (current) use of antithrombotics/antiplatelets; Z99.2 Dependence on renal dialysis; Z79.899 Other long term (current) drug therapy; Z87.440 Personal history of urinary (tract) infections; Z90.49 Acquired absence of other specified parts of digestive tract; Z86.14 Personal history of Methicillin resistant Staphylococcus aureus infection; Z95.5 Presence of coronary angioplasty implant and graft; Z98.890 Other specified postprocedural states
CPT/HCPCS: 64493; 64494; J1040; J2001; J3490

== ENCOUNTER 2020-04-22 10:33 | Emergency (ER) | payer MEDICARE ==
[~2020-04-22] VITALS: Ht 157.5 cm; Wt 74.0 kg
[~2020-04-22 10:33] MED LIST changes: -BUPIVACAINE MPF 0.25% 10 ML VIAL. ONE; -LIDOCAINE 1% PF 30 ML VIAL. ONE; -methylPREDNISolone ACETATE 80 MG/ML VIAL. ONE
[2020-04-22] MEDS ORDERED: DIPH,PERTUSS(ACELL),TET VAC/PF 0.5 ML SYRINGE. VAX IM ONE (11:00)
[2020-04-22] MEDS ORDERED: NEOMY/BACITR/POLYMYXIN OINT PACKET. TP ONE (11:00)
[2020-04-22] MEDS ORDERED: LIDOCAINE 2%/EPI 1:100,000 20 ML VIAL. IJ ONE (11:00)
--- NOTE | 2020-04-22 11:05 | PHYS DOC ---
Past History Past Medical History: Diabetes, GERD, High Cholesterol, Heart Disease, Renal Failure Additional Past Medical Histor: kidney disease Past Surgical History: Other Additional Past Surgical Histo: PD dialysis placement Alcohol Use: None Drug Use: None General Adult EDM: Chief Complaint: MECHANICAL FALL HPI: HPI: Patient is a 84 year old female who presents with CC fall. Pt woke up this morning feeling lethargic and fatigued. Pt was reaching down to bean picker an object and "went backwards" to the ground. Pt denies any LOC or syncopal episodes and thinks wearing socks may have caused her to slip. Pt was then able to call daughter and and EMS was called. Left posterior head puncture wound and hematoma present in ED. Pt is on dialysis and is due today at 1500. Pt does take an 81 mg aspirin daily. Pt believes Lethargy and fatigue related to sons recent passing on . No cervical midline tenderness present. Pt denies CP or SOB Review of Systems: Review of Systems: Constitutional: Denies fever or chills Eyes: Denies redness or eye pain HENT: Denies nasal congestion or sore throat Respiratory: Denies cough or shortness of breath Cardiovascular: Denies chest pain or palpitations GI: Denies abdominal pain, nausea, or vomiting : Denies dysuria or hematuria Musculoskeletal: Denies back pain or joint pain Integument: Denies rash or skin lesions Neurologic: Denies headache, focal weakness or sensory changes Complete systems were reviewed and found to be within normal limits, except as documented in this note. Allergies: Allergies: Allergies Coded Allergies Type Severity Reaction Last Updated Verified No Known Drug Allergies 03/16/14 No Physical Exam: PE: Constitutional: Well developed, well nourished, non-toxic appearance HENT: Normocephalic, atraumatic, left posterior head puncture wound Eyes: PERRL, EOMI, conjunctiva normal, no discharge Neck: Normal range of motion, no tenderness, supple Lungs & Thorax: No respiratory distress, equal chest rise and fall Abdomen: Soft, no tenderness Skin: Warm, dry, no erythema, no rash, bruising to right LE Back: No tenderness, no CVA tenderness Extremities: No tenderness, ROM intact, no edema, Neurologic: Alert and oriented X 3, normal motor function, normal sensory function, no focal deficits noted Psychologic: Affect normal, judgment normal Current Patient Data: Vital Signs: Vital Signs Date Time Temp Pulse Resp B/P (MAP) Pulse Ox O2 Delivery O2 Flow Rate FiO2 04/22/20 10:34 97.7 57 16 184/72 (109) 98 Room Air EKG: EKG: Sinus Rhythm, leftward axis NH:196ms QRS: 96ms QT:452ms QTc:452ms [] Radiology/Procedures: Radiology/Procedures: PROCEDURE: CT HEAD AND CERVICAL SPINE WO EXAM: CT Head without IV contrast INDICATION: Reason: headache, fall back with scalp laceration, pain / Spl. Instructions: / History: TECHNIQUE: Multi-detector row CT images were obtained of the head without the use of IV contrast. All CT scans performed at this facility utilize dose optimization techniques as appropriate to the exam, including the following: Automated exposure control and adjustment of the mA and/or KV according to patient size (this includes techniques or standardized protocols for targeted exams where dose is indication/reason for exam). COMPARISON: 08/10/[address] FINDINGS: BRAIN PARENCHYMA: No evidence of acute intraparenchymal hemorrhage or infarct. No abnormal parenchymal density or mass. VENTRICLES & EXTRA-AXIAL SPACES: Ventricles are within normal limits. Basilar cisterns are patent. No pathologic extra-axial fluid collection or mass. ORBITS: Orbital contents are unremarkable. SINUSES: Visualized paranasal sinuses and mastoid air cells are clear. OSSEOUS & SOFT TISSUES: Calvarium and skull base are intact. Left scalp hematoma in the parietal region is present. IMPRESSION: No acute intracranial pathology. EXAM: CT Cervical Spine without IV contrast INDICATION: Reason: headache, fall back with scalp laceration, pain / Spl. Instructions: / History: TECHNIQUE: Multi-detector row CT images were obtained through the cervical spine without the use of IV contrast. Post-processing sagittal and coronal reconstructed images were obtained for interpretation. All CT scans performed at this facility utilize dose optimization techniques as appropriate to the exam, including the following: Automated exposure control and adjustment of the mA and/or KV according to patient size (this includes techniques or standardized protocols for targeted exams where dose is indication/reason for exam). COMPARISON: None FINDINGS: CRANIOCERVICAL JUNCTION: Unremarkable. ALIGNMENT: Alignment is within normal limits. OSSEOUS: No evidence of fracture or bone destruction. DISC SPACES: Multilevel disc degenerative change is present with ossified discs at C3-C4, C4-C5 and C5-C6 that result in varying degrees of central canal and foraminal stenosis, most conspicuous on the right at C5-C6. FACET JOINTS: No facet fractures or jumped facets. SPINAL CANAL: No evidence of an epidural hematoma. Varying central canal narrowing due to disc osteophyte complexes as discussed above. NEUROFORAMINA: Mild foraminal narrowing most conspicuous at C5-C6. SOFT TISSUES: Unremarkable. IMPRESSION: No acute traumatic findings in the cervical spine with underlying degenerative changes noted. Electronically signed by: Dolly Alvarenga MD (04/22/2020 11:46 AM) [id number] [] Heart Score: Risk Factors: Risk Factors: DM, Current or recent (<one month) smoker, HTN, HLP, family history of CAD, obesity. Risk Scores: Score 0 - 3: 2.5% MACE over next 6 weeks - Discharge Home Score 4 - 6: 20.3% MACE over next 6 weeks - Admit for Clinical Observation Score 7 - 10: 72.7% MACE over next 6 weeks - Early Invasive Strategies Course & Med Decision Making: Course & Med Decision Making Pt presented to ED with CC fall and left posterior head hematoma. CT head negative for any acute pathology. Dressing and antibiotic ointment applied to puncture wound. Bandage for right lower extremity bruising. Pt has been making her dialysis sessions recently despite recent sons passing. Pt discharged and should be able to make session today, [] Dragon Disclaimer: Dragon Disclaimer: This electronic medical record was generated, in whole or in part, using a voice recognition dictation system. Departure Departure: Impression: Primary Impression: Fall Qualified Codes: W19.XXXA - Unspecified fall, initial encounter Additional Impressions: Scalp hematoma Qualified Codes: S00.03XA - Contusion of scalp, initial encounter Puncture wound of scalp Qualified Codes: S01.03XA - Puncture wound without foreign body of scalp, initial encounter Disposition: 01 DC HOME SELF CARE/HOMELESS Condition: STABLE Referrals: TERI GARCIA MD (PCP) Patient Instructions: Fall Prevention and Home Safety, [id number], Laceration Care, Adult, [id number], Scalp Hematoma Additional Instructions: Do not soak your wound. You may shower. Clean wound daily with soap and water. Change dressing 2 times daily. Use over the counter antibiotic ointment with each dressing change. LYNN ETRRY DO Apr 22, 2020 11:04
--- NOTE | 2020-04-22 11:49 | RAD ---
EXAM: CT Head without IV contrast INDICATION: Reason: headache, fall back with scalp laceration, pain / Spl. Instructions: / History: TECHNIQUE: Multi-detector row CT images were obtained of the head without the use of IV contrast. All CT scans performed at this facility utilize dose optimization techniques as appropriate to the exam, including the following: Automated exposure control and adjustment of the mA and/or KV according to patient size (this includes techniques or standardized protocols for targeted exams where dose is ind ication/reason for exam). COMPARISON: 08/10/[address] FINDINGS: BRAIN PARENCHYMA: No evidence of acute intraparenchymal hemorrhage or infarct. No abnormal parenchyma l density or mass. VENTRICLES & EXTRA-AXIAL SPACES: Ventricles are within normal limits. Basilar cisterns are patent. N o pathologic extra-axial fluid collection or mass. ORBITS: Orbital contents are unremarkable. SINUSES: Visualized paranasal sinuses and mastoid air cells are clear. OSSEOUS & SOFT TISSUES: Calvarium and skull base are intact. Left scalp hematoma in the parietal reg ion is present. IMPRESSION: No acute intracranial pathology. EXAM: CT Cervical Spine without IV contrast INDICATION: Reason: headache, fall back with scalp laceration, pain / Spl. Instructions: / History: TECHNIQUE: Multi-detector row CT images were obtained through the cervical spine without the use of IV contrast. Post-processing sagittal and coronal reconstructed images were obtained for interpretati on. All CT scans performed at this facility utilize dose optimization techniques as appropriate to th e exam, including the following: Automated exposure control and adjustment of the mA and/or KV accord ing to patient size (this includes techniques or standardized protocols for targeted exams where dose is indication/reason for exam). COMPARISON: None FINDINGS: CRANIOCERVICAL JUNCTION: Unremarkable. ALIGNMENT: Alignment is within normal limits. OSSEOUS: No evidence of fracture or bone destruction. DISC SPACES: Multilevel disc degenerative change is present with ossified discs at C3-C4, C4-C5 and C5-C6 that result in varying degrees of central canal and foraminal stenosis, most conspicuous on the right at C5-C6. FACET JOINTS: No facet fractures or jumped facets. SPINAL CANAL: No evidence of an epidural hematoma. Varying central canal narrowing due to disc osteo phyte complexes as discussed above. NEUROFORAMINA: Mild foraminal narrowing most conspicuous at C5-C6. SOFT TISSUES: Unremarkable. IMPRESSION: No acute traumatic findings in the cervical spine with underlying degenerative changes noted. Electronically signed by: Dolly Alvarenga MD (04/22/2020 11:46 AM) [id number]
[2020-04-22 12:30] VITALS: BP 182/60
--- NOTE | 2020-04-22 15:17 | EKG ---
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
== END 2020-04-22 13:10 | disposition home or self-care (01) ==
LOC: ER 10:33
DX: S01.03XA Puncture wound without foreign body of scalp, initial encounter (principal); R53.83 Other fatigue; E11.9 Type 2 diabetes mellitus without complications; K21.9 Gastro-esophageal reflux disease without esophagitis; E78.00 Pure hypercholesterolemia, unspecified; N19 Unspecified kidney failure; W18.39XA Other fall on same level, initial encounter; Y93.89 Activity, other specified; Y92.89 Other specified places as the place of occurrence of the external cause; Y99.8 Other external cause status
CPT/HCPCS: 70450; 72125; 93005; 99285

== ENCOUNTER 2020-08-14 18:07 | Emergency (ER) | payer MEDICARE ==
[~2020-08-14] VITALS: Ht 157.5 cm; Wt 73.6 kg
[~2020-08-14 18:07] MED LIST changes: -LISI40TA PO; +LISI40TA6 PO
--- NOTE | 2020-08-14 18:26 | EKG ---
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
--- NOTE | 2020-08-14 18:27 | PHYS DOC ---
Past History Past Medical History: Arthritis, CAD, CHF, Diabetes, GERD, High Cholesterol, Heart Disease, Hypertension, Renal Failure Additional Past Medical Histor: kidney disease Past Surgical History: Other Additional Past Surgical Histo: PD dialysis placement Alcohol Use: None Drug Use: None General Adult EDM: Chief Complaint: CHEST PAIN HPI: HPI: ".. I was at HD.. and started getting chest pain.. so they stopped it., I had my daughter bring me here..." Patient is a 84 year old female who presents with above hx and complaints central chest pain. Pt. patient localizes pain in sternal area there is some increase with deep breaths. Some radiation to left shoulder. Onset of pain was approximately 1500 hrs. Patient states she only was on dialysis approximately 30 minutes and usually runs 3 to 4 hours. Patient has been getting hemodialysis for the past 14 years. Patient normally follows with Dr. Dumont. Patient has follow-up with [facility] cardiology for previous cardiac work-ups. Patient has past history of diabetes, GERD elevated cholesterol, CHF, coronary artery disease, renal failure and on hemodialysis Wednesdays and Fridays. Her dialysis doctor is Dr. Garcia. No recent changes in medications. Patient states she has been compliant with her renal diet. Review of Systems: Review of Systems: Constitutional: Denies fever or chills Eyes: Denies change in visual acuity HENT: Denies nasal congestion or sore throat Respiratory: Complains of shortness of breath Cardiovascular: Complains of chest pain GI: Denies abdominal pain, nausea, vomiting, bloody stools or diarrhea : Denies dysuria Musculoskeletal: Denies back pain or joint pain Integument: Denies rash Neurologic: Denies headache, focal weakness or sensory changes Endocrine: Denies polyuria or polydipsia Lymphatic: Denies swollen glands Psychiatric: Denies depression or anxiety Family History: Family History: Noncontributory to presentation Current Medications: Current Meds: Current Medications Medications (Trade) Dose Ordered Sig/Noah Start Time Stop Time Status Last Admin Dose Admin Aspirin (Aspirin Chewable) 324 mg 1X ONCE 08/14/20 18:30 08/14/20 18:31 Allergies: Allergies: Allergies Coded Allergies Type Severity Reaction Last Updated Verified No Known Drug Allergies 04/22/20 No Physical Exam: PE: Constitutional: Mild distress, non-toxic appearance. [] HENT: Normocephalic, atraumatic, bilateral external ears normal, oropharynx moist, no oral exudates, nose normal. [] Eyes: PERRLA, EOMI, conjunctiva normal, no discharge. [] Neck: Normal range of motion, no tenderness, supple, no stridor. [] JVD in the sitting position Cardiovascular:Heart rate regular rhythm, no murmur [] PMI to the left Lungs & Thorax: Bilateral breath sounds equal apex with few scattered wheezes and bilateral basilar crackles on auscultation [] Abdomen: Bowel sounds normal, soft, no tenderness, no masses, no pulsatile masses. Obese. Surgical scars. Ports. Skin: Warm, dry, no erythema, no rash. Poor turgor Back: No tenderness, no CVA tenderness. [] Extremities: No tenderness, no cyanosis, no clubbing, ROM intact, no edema. [] Good thrill in shunt Neurologic: Alert and oriented X 3, patient moves all extremities on request, does have some decreased plantar sensation, no focal deficits noted. [] Psychologic: Affect anxious, judgement normal, mood normal. [] EKG: EKG: My interpretation of EKG #1 at 1808 hrs. shows a sinus rhythm at 84 bpm. Does have occasional PVCs. She does have left axis care. There is some nonspecific ST and T wave changes. No findings of acute STEMI of contralateral changes. My interpretation EKG #2 at 1923 hrs. shows a sinus rhythm at 74 bpm. There is also occasional PVCs. There is left axis. There is slight prolonged QT interval at 440 ms QT C interval is 489 ms. But no findings acute STEMI contralateral changes. Minimal changes from previous EKG at 1800 hrs. [] Radiology/Procedures: Radiology/Procedures: [][address] [address] IMAGING REPORT Signed PATIENT: WILLIAM BUSTOS LACCOUNT: [id number] : 1935 LOCATION: ER AGE: 84 SEX: F EXAM STATUS: REG ER ORD. PHYSICIAN: LINUS CRUZ MD REASON: Chest pain PROCEDURE: PORTABLE CHEST 1V AP chest. HISTORY: Chest pain AP view was taken of the chest. Heart is mildly enlarged. There are small bilateral effusions. There is mild vascular congestion. There are no confluent infiltrates. IMPRESSION: 1. Small pleural effusions and vascular congestion suggests mild heart failure. Electronically signed by: Maxwell Berry MD (08/14/2020 7:00 PM) [facility] DICTATED AND SIGNED BY: MAXWELL BERRY MD DATE: 08/14/20 136 CC: LINUS CRUZ MD; TERI DUMONT MD ~MTH0 0 Heart Score: C/O Chest Pain: Yes HEART Score for Chest Pain: HEART Score for Chest Pain Response (Comments) Value History Moderately Suspicious 1 ECG Nonspecific Repolarizatio 1 Risk Factors 1 or 2 Risk Factors 1 Troponin < Normal Limit 0 Total 3 Risk Factors: Risk Factors: DM, Current or recent (<one month) smoker, HTN, HLP, family history of CAD, obesity. Risk Scores: Score 0 - 3: 2.5% MACE over next 6 weeks - Discharge Home Score 4 - 6: 20.3% MACE over next 6 weeks - Admit for Clinical Observation Score 7 - 10: 72.7% MACE over next 6 weeks - Early Invasive Strategies Course & Med Decision Making: Course & Med Decision Making Pertinent Labs and Imaging studies reviewed. (See chart for details) Discussed history, testing and treatment plan with Dr. Ragland. Patient to be transferred to [facility] where dialysis can be completed and follow-up with nephrology and cardiology. Impression: 1. Chest pain 2. CHF/pulmonary edema BNP= 35,000 3. End-stage renal disease-hemodialysis Wednesdays and Fridays 4. History of diabetes 5. History of hypertension 6. Degenerative joint changes. [] Dragon Disclaimer: Dragon Disclaimer: This electronic medical record was generated, in whole or in part, using a voice recognition dictation system. Departure Departure: Referrals: TERI DUMONT MD (PCP) Dragon Disclaimer This chart was dictated in whole or in part using Voice Recognition software in a busy, high-work load, and often noisy Emergency Department environment. It may contain unintended and wholly unrecognized errors or omissions. Dragon Disclaimer This chart was dictated in whole or in part using Voice Recognition software in a busy, high-work load, and often noisy Emergency Department environment. It may contain unintended and wholly unrecognized errors or omissions. LINUS CRUZ MD Aug 14, 2020 18:26
[2020-08-14] MEDS ORDERED: ASPIRIN CHEWABLE 81 MG TABLET. PO ONE (18:30)
[2020-08-14 19:01] LABS: BASO % 1 % (0-3); EOS # 0.1 x10^3/uL (0.0-0.7); EOS % 2 % (0-3); HEMATOCRIT 36.6 % (36.0-47.0); HEMOGLOBIN 12.1 g/dL (12.0-15.5); LYMPH # 1.3 x10^3/uL (1.0-4.8); LYMPH % 23 % (24-48); MEAN CORPUSCULAR HEMOGLOBIN 32 pg (25-35); MEAN CORPUSCULAR HGB CONC 33 g/dL (31-37); MEAN CORPUSCULAR VOLUME 97 fL (79-100); MONO # 0.4 x10^3/uL (0.0-1.1); MONO % 7 % (0-9); NEUT # 3.8 x10^3uL (1.8-7.7); NEUT % 67 % (31-73); PLATELET COUNT 227 x10^3/uL (140-400); RED BLOOD COUNT 3.77 x10^6/uL (3.50-5.40); RED CELL DISTRIBUTION WIDTH 15.2 % (11.5-14.5); WHITE BLOOD COUNT 5.7 x10^3/uL (4.0-11.0)
--- NOTE | 2020-08-14 19:02 | RAD ---
AP chest. HISTORY: Chest pain AP view was taken of the chest. Heart is mildly enlarged. There are small bilateral effusions. There is mild vascular congestion. There are no confluent infiltrates. IMPRESSION: 1. Small pleural effusions and vascular congestion suggests mild heart failure. Electronically signed by: Maxwell Berry MD (08/14/2020 7:00 PM) [facility]
[2020-08-14 19:10] LABS: ANION GAP 9 (6-14); BLOOD UREA NITROGEN 11 mg/dL (7-20); CALCIUM 9.1 mg/dL (8.5-10.1); CARBON DIOXIDE 31 mmol/L (21-32); CHLORIDE 99 mmol/L (98-107); CREATININE 2.8 mg/dL (0.6-1.0); GFR 16.1; GLUCOSE 124 mg/dL (70-99); POTASSIUM 3.3 mmol/L (3.5-5.1); SODIUM 139 mmol/L (136-145)
[2020-08-14 19:22] LABS: LIPASE 117 U/L (73-393); MAGNESIUM 1.6 mg/dL (1.8-2.4)
[2020-08-14] MEDS ORDERED: MORPHINE SULFATE 10 MG/ML SYRINGE. SQ ONE (19:45)
[2020-08-14 21:19] LABS: BILIRUBIN,URINE NEG (NEG); CLARITY,URINE CLEAR; COLOR,URINE YELLOW; GLUCOSE,URINE 100 mg/dL (NEG); NITRITE,URINE NEG (NEG); RBC,URINE OCC /HPF (0-2); UROBILINOGEN,URINE 0.2 mg/dL (0.2 mg/dL)
[2020-08-14 21:20] LABS: BACTERIA,URINE 0 /HPF (0-FEW)
[2020-08-14 21:28] LABS: BARBITURATES NEG (NEG); BENZODIAZEPINES NEG (NEG); CANNABINOIDS NEG (NEG); COCAINE NEG (NEG); METHADONE NEG (NEG); OPIATES POS (NEG); PHENCYCLIDINE NEG (NEG)
[2020-08-14 21:31] LABS: AMPHETAMINE/METHAMPHETAMINE NEG (NEG)
[2020-08-14 22:13] VITALS: BP 157/54
[2020-08-15 13:49] LABS: THYROID STIM HORMONE (TSH) 2.06 uIU/mL (0.358-3.740)
== END 2020-08-14 22:56 | disposition short-term general hospital (02) ==
LOC: ER 18:07
DX: I13.2 Hypertensive heart and chronic kidney disease with heart failure and with stage 5 chronic kidney disease, or end stage renal disease (principal); I50.1 Left ventricular failure, unspecified; N18.6 End stage renal disease; E11.22 Type 2 diabetes mellitus with diabetic chronic kidney disease; Z99.2 Dependence on renal dialysis; M19.90 Unspecified osteoarthritis, unspecified site; R07.89 Other chest pain; I25.10 Atherosclerotic heart disease of native coronary artery without angina pectoris; K21.9 Gastro-esophageal reflux disease without esophagitis; E78.00 Pure hypercholesterolemia, unspecified; Z79.899 Other long term (current) drug therapy
CPT/HCPCS: 36415; 71045; 80048; 80061; 80307; 81001; 82550; 83690; 83735; 83880; 84443; 84484; 85025; 85379; 85610; 85730; 87086; 93005; 96372; 99285; J2270

== ENCOUNTER 2020-08-21 18:22 | Emergency (ER) | payer MEDICARE ==
[~2020-08-21] VITALS: Ht 157.5 cm; Wt 73.6 kg
--- NOTE | 2020-08-21 18:59 | PHYS DOC ---
Past History Past Medical History: Arthritis, CAD, CHF, Diabetes, GERD, High Cholesterol, Heart Disease, Hypertension, Renal Failure Additional Past Medical Histor: ESRD Past Surgical History: Cholecystectomy, Other Additional Past Surgical Histo: PD dialysis placement Alcohol Use: None Drug Use: None General Adult EDM: Chief Complaint: MECHANICAL FALL HPI: HPI: 84-year-old female presents after mechanical fall. The patient was at dialysis and on her way out the first set of a double set of doors started to close. They hit her from the side and caused her to trip over the threshold. She fell backwards and hit the occipital portion of her head. She has a good-sized hematoma. She had no loss of consciousness. Mild headache. No vomiting or dizziness. On arrival her blood pressure is high, but the patient was due to take hydralazine as soon she got home. Review of Systems: Review of Systems: Constitutional: Denies fever or chills Eyes: Denies change in visual acuity HENT: Denies nasal congestion or sore throat. Scalp contusion Respiratory: Denies cough or shortness of breath Cardiovascular: Denies chest pain or edema GI: Denies abdominal pain, nausea, vomiting, bloody stools or diarrhea : Denies dysuria Musculoskeletal: Denies back pain or joint pain Integument: Denies rash Neurologic: Denies headache, focal weakness or sensory changes Endocrine: Denies polyuria or polydipsia Lymphatic: Denies swollen glands Psychiatric: Denies depression or anxiety Allergies: Allergies: Allergies Coded Allergies Type Severity Reaction Last Updated Verified No Known Drug Allergies 04/22/20 No Physical Exam: PE: Constitutional: Well developed, well nourished, no acute distress, non-toxic appearance. [] HENT: Normocephalic, 3 cm x 3 cm hematoma of the left occipital scalp, bilateral external ears normal, oropharynx moist, no oral exudates, nose normal. [] Eyes: PERRLA, EOMI, conjunctiva normal, no discharge. [] Neck: Normal range of motion, no tenderness, supple, no stridor. [] Cardiovascular: Heart rate regular rhythm, no murmur. Elevated blood pressure. [] Lungs & Thorax: Bilateral breath sounds clear to auscultation [] Abdomen: Bowel sounds normal, soft, no tenderness, no masses, no pulsatile masses. [] Skin: Warm, dry, no erythema, no rash. [] Back: No tenderness, no CVA tenderness. [] Extremities: No tenderness, no cyanosis, no clubbing, ROM intact, no edema. [] Neurologic: Alert and oriented X 3, normal motor function, normal sensory function, no focal deficits noted. [] Psychologic: Affect normal, judgement normal, mood normal. [] Current Patient Data: Vital Signs: Vital Signs Date Time Temp Pulse Resp B/P (MAP) Pulse Ox O2 Delivery O2 Flow Rate FiO2 08/21/20 18:42 97.8 60 16 209/84 (125) 97 Room Air EKG: EKG: [] Radiology/Procedures: Radiology/Procedures: [] Impressions: Exam: CT head and cervical spine without contrast INDICATION: Fall, hit head TECHNIQUE: Sequential axial images through the head and cervical spine were obtained without the administration of IV contrast. Exposure: One or more of the following in the visualized dose reduction techniques were utilized for this examination: 1. Automated exposure control 2. Adjustment of the MA and/or KV according to patient size 3. Use of iterative of reconstructive technique Comparisons: None FINDINGS: Head: No focal parenchymal lesion or hemorrhage is identified. There is no midline shift or sulcal effacement. No acute vascular territory infarction is identified. Roe-white distinction is preserved. The ventricular system is within normal limits without compression hydrocephalus. The basal cisterns are well maintained. Extra cranial soft tissue scalp contusion overlying the left occipital region. The visualized portions of the paranasal sinuses and mastoid air cells are well- pneumatized. No acute fractures. Cervical spine: Straightening of cervical spine which may positional. Vertebral body heights are well-maintained. Fracture to the cervical spine is not identified. Multilevel spondylotic change in cervical spine with degenerative disease greatest at C5-C6 and C6-C7. Visualized paraspinal soft tissues are unremarkable. IMPRESSION: 1. Extra cranial soft tissue scalp contusion overlying the left occipital region without underlying osseous or intracranial abnormality. 2. Negative CT C-spine for acute traumatic injury. Electronically signed by: Danielle Tavera MD (08/21/2020 7:16 PM) [facility] DICTATED AND SIGNED BY: DANIELLE TAVERA MD DATE: 08/21/201911 CC: GEO HOOVER DO; TERI GARCIA MD ~MTH0 0 Heart Score: C/O Chest Pain: N/A Risk Factors: Risk Factors: DM, Current or recent (<one month) smoker, HTN, HLP, family history of CAD, obesity. Risk Scores: Score 0 - 3: 2.5% MACE over next 6 weeks - Discharge Home Score 4 - 6: 20.3% MACE over next 6 weeks - Admit for Clinical Observation Score 7 - 10: 72.7% MACE over next 6 weeks - Early Invasive Strategies Course & Med Decision Making: Course & Med Decision Making Pertinent Labs and Imaging studies reviewed. (See chart for details) I ordered a CT of the head and cervical spine. I will give the patient 30 mg of hydralazine p.o. She would normally take up to 100 mg at home for her current blood pressure. The patient's CT of the head and cervical spine is negative for acute findings other than a scalp hematoma. See official read for more details. The patient's blood pressure improved a little bit. She is on a sliding scale from her primary physician and she will adjust as needed for her nighttime dose. She is stable for discharge at this time. [] Dragon Disclaimer: Dragon Disclaimer: This electronic medical record was generated, in whole or in part, using a voice recognition dictation system. Departure Departure: Impression: Primary Impression: Fall from slip, trip, or stumble Qualified Codes: W01.0XXA - Fall on same level from slipping, tripping and stumbling without subsequent striking against object, initial encounter Additional Impression: Scalp hematoma Qualified Codes: S00.03XA - Contusion of scalp, initial encounter Disposition: HOME / SELF CARE / HOMELESS Condition: STABLE Referrals: TERI GARCIA MD (PCP) Patient Instructions: Hematoma, [id number] GEO HOOVER DO Aug 21, 2020 18:59
[2020-08-21] MEDS ORDERED: hydrALAZINE 10 MG TABLET PO ONE (19:00)
--- NOTE | 2020-08-21 19:18 | RAD ---
Exam: CT head and cervical spine without contrast INDICATION: Fall, hit head TECHNIQUE: Sequential axial images through the head and cervical spine were obtained without the admi nistration of IV contrast. Exposure: One or more of the following in the visualized dose reduction techniques were utilized for this examination: 1. Automated exposure control 2. Adjustment of the MA and/or KV according to patient size 3. Use of iterative of reconstructive technique Comparisons: None FINDINGS: Head: No focal parenchymal lesion or hemorrhage is identified. There is no midline shift or sulcal effaceme nt. No acute vascular territory infarction is identified. Roe-white distinction is preserved. The ventricular system is within normal limits without compression hydrocephalus. The basal cisterns are well maintained. Extra cranial soft tissue scalp contusion overlying the left occipital region. The visualized portion s of the paranasal sinuses and mastoid air cells are well-pneumatized. No acute fractures. Cervical spine: Straightening of cervical spine which may positional. Vertebral body heights are well-maintained. Fracture to the cervical spine is not identified. Multilevel spondylotic change in cervical spine with degenerative disease greatest at C5-C6 and C6-C7 . Visualized paraspinal soft tissues are unremarkable. IMPRESSION: 1. Extra cranial soft tissue scalp contusion overlying the left occipital region without underlying osseous or intracranial abnormality. 2. Negative CT C-spine for acute traumatic injury. Electronically signed by: Kyleigh Reed MD (08/21/2020 7:16 PM) [facility]
[2020-08-21 19:40] VITALS: BP 188/76
== END 2020-08-21 19:45 | disposition home or self-care (01) ==
LOC: ER 18:22
DX: S00.03XA Contusion of scalp, initial encounter (principal); M19.90 Unspecified osteoarthritis, unspecified site; I25.10 Atherosclerotic heart disease of native coronary artery without angina pectoris; E11.9 Type 2 diabetes mellitus without complications; K21.9 Gastro-esophageal reflux disease without esophagitis; E11.22 Type 2 diabetes mellitus with diabetic chronic kidney disease; I13.2 Hypertensive heart and chronic kidney disease with heart failure and with stage 5 chronic kidney disease, or end stage renal disease; N18.6 End stage renal disease; I50.9 Heart failure, unspecified; Z99.2 Dependence on renal dialysis; W01.0XXA Fall on same level from slipping, tripping and stumbling without subsequent striking against object, initial encounter; Y93.89 Activity, other specified; Y92.89 Other specified places as the place of occurrence of the external cause; Y99.8 Other external cause status
CPT/HCPCS: 70450; 72125; 99285

== ENCOUNTER → 2021-02-04 | Outpatient (CLI) | payer MEDICARE ==
[~2021-02-04] MED LIST changes: -FENO48TA3 PO; +FENO48TA4 PO
--- NOTE | 2021-02-04 14:51 | CARD ---
MR#: [id number] Date of Study: 02/04/2021 Ordering Physician: SHEILA GARCIA, Referring Physician: SHEILA GARCIA, Tech: Haresh Cruz [facility] APPROVED REPORT EXAM: Two-dimensional and M-mode echocardiogram with Doppler and color Doppler. Other Information Quality : AverageHR: 53bpm Rhythm : Bradycardia INDICATION Aortic Valve Disease RISK FACTORS Hypertension 2D DIMENSIONS Left Atrium(2D)4.3 (1.6-4.0cm)IVSd1.3 (0.7-1.1cm) Aortic Root(2D)3.0 (2.0-3.7cm)LVDd4.8 (3.9-5.9cm) LVOT Diameter1.9 (1.8-2.4cm)PWd1.3 (0.7-1.1cm) LVDs3.0 (2.5-4.0cm)FS (%) 37.4 % SV71.2 mlLVEF(%)67.4 (>50%) Aortic Valve AoV Peak Gerardo.296.6cm/sAoV VTI77.4cm AO Peak GR.35.2mmHgLVOT Peak Gerardo.80.7cm/s LVOT VTI 22.51cmAO Mean GR.19mmHg MORIS (VMAX)1.03cm2 Mitral Valve MV E Jmhjzfud892.0cm/sMV E Peak Gr.16mmHg MV DECEL ETFF001imZI A Dvlkobbt624.0cm/s MV E Mean Gr.4mmHgE/A Ratio1.7 Pulmonary Valve PV Peak Mfhoheur91.4cm/sPV Peak Grad.3mmHg Tricuspid Valve TR P. Tuoehsuf465ox/sTR Peak Gr.34mmHg Pulmonary Vein S1 Amuxvbjl91.3cm/sD2 Fvxsrqgx16.3cm/s LEFT VENTRICLE The left ventricle is normal size. There is mild concentric left ventricular hypertrophy. The left ve ntricular systolic function is normal. The ejection fraction is 60-65%. There is normal LV segmental wall motion. Transmitral Doppler flow pattern is Grade II-pseudonormal filling dynamics. No left vent ricle thrombus noted on this study. There is no ventricular septal defect visualized. There is no lef t ventricular aneurysm. There is no mass noted in the left ventricle. RIGHT VENTRICLE The right ventricle is normal size. There is normal right ventricular wall thickness. The right ventr icular systolic function is normal. ATRIA The left atrium is moderately dilated. The right atrium size is normal. The interatrial septum is int act with no evidence for an atrial septal defect or patent foramen ovale as noted on 2-D or Doppler i maging. AORTIC VALVE The aortic valve is calcified and displays decreased opening. Doppler and Color Flow revealed no sign ificant aortic regurgitation. There is moderate valvular aortic stenosis. Calculated aortic valve are a is 1.0 cm2 with maximum pressure gradient of 35 mmHg and mean pressure gradient of 19 mmHg. There i s no aortic valvular vegetation. MITRAL VALVE Mitral annular calcification is severe. The mitral valve is calcified and displays decreased opening. There is no evidence of mitral valve prolapse. There is mild mitral valve stenosis with mean pressur e gradient of 4 mmHg. Doppler and Color-flow revealed mild mitral regurgitation. TRICUSPID VALVE There is tricuspid annular calcification. Doppler and Color Flow revealed mild tricuspid regurgitatio n. The PA pressure was estimated at 40 mmHg. There is no tricuspid valve prolapse or vegetation. Ther e is no tricuspid valve stenosis. PULMONIC VALVE The pulmonary valve is normal in structure and function. Doppler and Color Flow revealed no pulmonic valvular regurgitation. There is no pulmonic valvular stenosis. GREAT VESSELS The aortic root is normal in size. The ascending aorta is normal in size. The pulmonary artery is nor mal. The IVC is normal in size and collapses >50% with inspiration. PERICARDIAL EFFUSION There is no pleural effusion. There is no evidence of significant pericardial effusion. Critical Notification Critical Value: No <Conclusion> The left ventricular systolic function is normal. The ejection fraction is 60-65%. There is normal LV segmental wall motion. Transmitral Doppler flow pattern is Grade II-pseudonormal filling dynamics. Moderate valvular aortic stenosis. Mild mitral stenosis. Mild mitral regurgitation. Mild tricuspid regurgitation. The PA pressure was estimated at 40 mmHg. There is no evidence of significant pericardial effusion. Signed by : Keith Early, Electronically Approved : 02/04/2021 14:51:22
== END ==
LOC: ECHO 12:45
PROVIDERS: ATTEND Internal Medicine Cardiovascular Disease
DX: I08.3 Combined rheumatic disorders of mitral, aortic and tricuspid valves (principal)
CPT/HCPCS: 93306

== ENCOUNTER 2021-03-05 13:27 | Emergency (ER) | payer MEDICARE ==
[~2021-03-05] VITALS: Ht 157.5 cm; Wt 73.6 kg
[2021-03-05 13:54] VITALS: BP 185/59
[2021-03-05] MEDS ORDERED: OXYC1TAB15 PO (13:58)
[2021-03-05] MEDS ORDERED: NAPR-695 PO (13:58)
--- NOTE | 2021-03-05 13:59 | PHYS DOC ---
Past History Past Medical History: Arthritis, CAD, CHF, Diabetes, GERD, High Cholesterol, Heart Disease, Hypertension, Hypothyroid, Renal Failure Additional Past Medical Histor: ESRD, chronic back pain Past Surgical History: Cholecystectomy, Other Additional Past Surgical Histo: PD dialysis placement Smoking: Non-smoker Alcohol Use: None Drug Use: None General Adult EDM: Chief Complaint: BACK PAIN - NO INJURY HPI: HPI: 85-year-old female presents with report of acute on chronic left low back pain which has been worse since yesterday. Patient reports has had issues for years with this. Patient reports has followed with pain management and has previously gotten injections in her back which have helped. Patient denies any fever or chills. Denies dysuria or hematuria. Denies trauma. Patient has been using acki-vbo-dcrlgtn icy hot pads which have also somewhat helped. Patient also has prescription for hydrocodone which she has been taking without significant relief. Patient reports she last took dose of hydrocodone at 0930 this morning. Review of Systems: Review of Systems: Constitutional: Denies fever or chills Eyes: Denies redness or eye pain HENT: Denies nasal congestion or sore throat Respiratory: Denies cough or shortness of breath Cardiovascular: Denies chest pain or palpitations GI: Denies abdominal pain, nausea, or vomiting : Denies dysuria or hematuria Musculoskeletal: Reports acute on chronic low back pain Integument: Denies rash or skin lesions Neurologic: Denies headache, focal weakness or sensory changes Complete systems were reviewed and found to be within normal limits, except as documented in this note. Allergies: Allergies: Allergies Coded Allergies Type Severity Reaction Last Updated Verified No Known Drug Allergies 04/22/20 No Physical Exam: PE: Constitutional: Well developed, well nourished, no acute distress, non-toxic appearance HENT: Normocephalic, atraumatic Eyes:Conjunctiva normal, no discharge Neck: Normal range of motion, no tenderness, supple Lungs & Thorax: No respiratory distress, equal chest rise and fall Abdomen: Soft, no tenderness Skin: Warm, dry, no erythema, no rash Back: No midline tenderness, left low lumbar paraspinal tenderness, no CVA tenderness Extremities: No tenderness, ROM intact, no edema Neurologic: Alert and oriented X 3, no focal deficits noted Psychologic: Affect normal, judgment normal EKG: EKG: [] Radiology/Procedures: Radiology/Procedures: [] Heart Score: C/O Chest Pain: N/A Course & Med Decision Making: Course & Med Decision Making Patient presents with acute on chronic low back pain. Reports current home pain meds are not helping. Dose of IM dexamethasone provided. Patient is a diabetic however patient reports diabetes has been well controlled. Percocet also provided. Will add prescription for naproxen for patient to take in addition until she can follow with pain management. Patient stable for discharge with outpatient follow-up with PCP/pain management. Discussed findings and plan with patient and daughter, who acknowledge understanding and agreement. Saul Disclaimer: Saul Disclaimer: This electronic medical record was generated, in whole or in part, using a voice recognition dictation system. Departure Departure: Impression: Primary Impression: Acute exacerbation of chronic low back pain Disposition: HOME / SELF CARE / HOMELESS Condition: STABLE Referrals: TERI GARCIA MD (PCP) Patient Instructions: Chronic Back Pain, Chronic Pain Management Scripts Oxycodone Hcl/Acetaminophen (PERCOCET 5-325 MG TABLET ) 1 Each Tablet 0.5-1 TAB PO PRN Q6HRS PRN for PAIN, #10 TAB Prov: LYNN TERRY DO 03/05/21 Naproxen (NAPROXEN) 375 Mg Tablet 1 TAB PO BID PRN for PAIN, #30 TAB 0 Refills with food Prov: LYNN TERRY DO 03/05/21 LYNN TERRY DO Mar 05, 2021 13:59
[2021-03-05] MEDS: DEXAMETHASONE SOD PHOS 10 MG/ML VIAL. IM ONE (14:08)
[2021-03-05] MEDS: oxyCODONE/APAP 5/325 1 TAB TABLET PO ONE (14:08)
== END 2021-03-05 14:24 | disposition home or self-care (01) ==
LOC: ER 13:27
DX: M54.59 Other low back pain (principal); G89.29 Other chronic pain; M19.90 Unspecified osteoarthritis, unspecified site; I25.10 Atherosclerotic heart disease of native coronary artery without angina pectoris; K21.9 Gastro-esophageal reflux disease without esophagitis; E78.00 Pure hypercholesterolemia, unspecified; E03.9 Hypothyroidism, unspecified; E11.22 Type 2 diabetes mellitus with diabetic chronic kidney disease; I13.2 Hypertensive heart and chronic kidney disease with heart failure and with stage 5 chronic kidney disease, or end stage renal disease; N18.6 End stage renal disease; I50.9 Heart failure, unspecified; Z99.2 Dependence on renal dialysis; Z90.49 Acquired absence of other specified parts of digestive tract
CPT/HCPCS: 96372; 99283; J1100

== ENCOUNTER → 2021-03-12 | Day surgery (SDC) | payer MEDICARE ==
[~2021-03-12] MED LIST changes: +BUPIVACAINE MPF 0.25% 10 ML VIAL. ONE; +IOHEXOL 300 MG/ML 50 ML VIAL. ONE; +LIDOCAINE 1% PF 30 ML VIAL. ONE; +NAPR-695 PO; +OXYC1TAB15 PO; +methylPREDNISolone ACETATE 40 MG/ML VIAL. ONE
[2021-03-12 15:34] VITALS: BP 170/91
== END | disposition home or self-care (01) ==
LOC: SURG 14:23
PROVIDERS: ATTEND Anesthesiology
DX: M47.816 Spondylosis without myelopathy or radiculopathy, lumbar region (principal); M51.36 Other intervertebral disc degeneration, lumbar region; I12.9 Hypertensive chronic kidney disease with stage 1 through stage 4 chronic kidney disease, or unspecified chronic kidney disease; E11.22 Type 2 diabetes mellitus with diabetic chronic kidney disease; N18.30 Chronic kidney disease, stage 3 unspecified; M19.90 Unspecified osteoarthritis, unspecified site; Z99.2 Dependence on renal dialysis; Z79.899 Other long term (current) drug therapy; Z98.890 Other specified postprocedural states; Z79.4 Long term (current) use of insulin; Z82.49 Family history of ischemic heart disease and other diseases of the circulatory system; Z83.3 Family history of diabetes mellitus
CPT/HCPCS: 64493; 64494; A4209; A4657; A4930; J1030; J3490; Q9967